=== PATIENT | male | born 1985 | race Native Hawaiian/Other Pacific Islander ===

== ENCOUNTER → 2018-02-28 07:55 | Outpatient (CLI) | payer MEDICARE, MEDICAID, SELFPAY ==
[2018-02-28 08:08] LABS: Bacteria Urine None Seen; RBC Urine None Seen (0-5/HPF); WBC Urine None Seen (0-5/HPF)
[2018-02-28 09:03] LABS: Add Manual Diff / Slide Review NO; Basophils Percent Auto 0.6 % (0-2); Eosinophils Percent Auto 2.3 % (2-4); Hematocrit 35.7 % (41-53); Hemoglobin 12.5 g/dL (13.5-17.5); Lymphocytes Percent Auto 4.3 % (25-40); Mean Corpuscular HGB Conc 35.1 % (30-36); Mean Corpuscular Hemoglobin 29.9 PG (26-34); Mean Corpuscular Volume 85.2 fL (80-100); Monocytes Percent Auto 7.6 % (3-14); Neutrophils Absolute Auto 8800 /uL (3000-5900); Neutrophils Percent Auto 85.2 % (50-75); Platelet Count 206 X10^3/uL (150-400); Red Blood Cell Count 4.19 X10^6/uL (4.5-5.9); Red Cell Distribution Width 13.4 % (11.6-14.8); White Blood Cell Count 10.3 X10^3/uL (4.5-11.0)
[2018-02-28 09:12] LABS: Alanine Aminotransferase 22 IU/L (21-72); Albumin 4.5 g/dL (3.5-5.0); Albumin Globulin Ratio 1.7 (1.0-2.8); Alkaline Phosphatase 62 U/L (38-126); Aspartate Aminotransferase 18 IU/L (17-59); BUN Creatinine Ratio 14.6 (6-22); Bilirubin Total 0.6 mg/dL (0.2-1.3); Blood Urea Nitrogen 35 mg/dL (9-20); Calcium 9.9 mg/dL (8.4-10.2); Carbon Dioxide 25 mmol/L (22-32); Chloride 106 mmol/L (98-107); Estimated Glomerular Filt Rate 31.9 mL/min (>60); Globulin 2.6 g/dL (1.7-4.1); Glucose 97 mg/dL (70-100); HEMOLYSIS < 15 (0-50); Magnesium 1.5 mg/dL (1.6-2.3); Phosphorous 3.7 mg/dL (2.5-4.5); Potassium 4.1 mmol/L (3.4-5.1); Sodium 144 mmol/L (137-145); Total Protein 7.1 g/dL (6.3-8.2)
[2018-02-28 09:33] LABS: Appearance Urine UA CLEAR; Bilirubin Urine UA NEGATIVE (NEGATIVE); Color Urine UA YELLOW; Glucose Urine UA NEGATIVE (Normal); Ketones Urine UA NEGATIVE (NEGATIVE); Leukocyte Esterase Urine UA NEGATIVE (NEGATIVE); Nitrite Urine UA Negative (Negative); Occult Blood Urine UA TRACE-LYSED (Negative); Protein Urine UA NEGATIVE (Negative); Urobilinogen Urine UA 0.2 E.U./dL (0.2)
[2018-02-28 09:41] LABS: Culture Indicated Urine Cult Not Indicated; Urine Comments Microscopic Normal
[2018-02-28 14:38] LABS: Creatinine Urine Random 100.7 mg/dL; Protein (Total) Urine Random 26 mg/dL (0-12); Protein Creatinine Ratio Urine 0.25 GRAM/24H
[2018-03-02 19:43] LABS: Tacrolimus 9.8 mcg/L (5.0-20.0)
== END ==
PROVIDERS: PCP Physician Assistant; Visit Provider Internal Medicine Nephrology
DX: Z94.0 Kidney transplant status (principal); Z48.298 Encounter for aftercare following other organ transplant; T86.40 Unspecified complication of liver transplant; E83.40 Disorders of magnesium metabolism, unspecified; T86.90 Unspecified complication of unspecified transplanted organ and tissue; I10 Essential (primary) hypertension
CPT/HCPCS: 36415; 80053; 80197; 81001; 82570; 83735; 84100; 84156; 85025

== ENCOUNTER → 2018-03-07 07:53 | Outpatient (CLI) | payer MEDICARE, MEDICAID, SELFPAY ==
[2018-03-07 08:04] LABS: Bacteria Urine None Seen; RBC Urine None Seen (0-5/HPF); WBC Urine None Seen (0-5/HPF)
[2018-03-07 08:38] LABS: Add Manual Diff / Slide Review NO; Basophils Percent Auto 1.4 % (0-2); Eosinophils Percent Auto 1.7 % (2-4); Hematocrit 37.1 % (41-53); Hemoglobin 12.7 g/dL (13.5-17.5); Lymphocytes Percent Auto 10.2 % (25-40); Mean Corpuscular HGB Conc 34.2 % (30-36); Mean Corpuscular Hemoglobin 29.7 PG (26-34); Monocytes Percent Auto 8.6 % (3-14); Neutrophils Absolute Auto 4700 /uL (3000-5900); Neutrophils Percent Auto 78.1 % (50-75); Platelet Count 195 X10^3/uL (150-400); Red Blood Cell Count 4.26 X10^6/uL (4.5-5.9); Red Cell Distribution Width 13.7 % (11.6-14.8); White Blood Cell Count 6.1 X10^3/uL (4.5-11.0)
[2018-03-07 08:48] LABS: Appearance Urine UA CLEAR; Bilirubin Urine UA NEGATIVE (NEGATIVE); Color Urine UA YELLOW; Glucose Urine UA NEGATIVE (Normal); Ketones Urine UA NEGATIVE (NEGATIVE); Leukocyte Esterase Urine UA NEGATIVE (NEGATIVE); Nitrite Urine UA Negative (Negative); Occult Blood Urine UA NEGATIVE (Negative); Protein Urine UA NEGATIVE (Negative); Specific Gravity Urine UA 1.015 (1.000-1.035); Urobilinogen Urine UA 0.2 E.U./dL (0.2); pH Urine UA 5.5 (4.5-8.0)
[2018-03-07 08:53] LABS: Culture Indicated Urine Cult Not Indicated; Urine Comments Microscopic Normal
[2018-03-07 09:04] LABS: Alanine Aminotransferase 22 IU/L (21-72); Albumin 4.8 g/dL (3.5-5.0); Albumin Globulin Ratio 1.7 (1.0-2.8); Alkaline Phosphatase 59 U/L (38-126); Aspartate Aminotransferase 17 IU/L (17-59); BUN Creatinine Ratio 21.3 (6-22); Bilirubin Total 0.6 mg/dL (0.2-1.3); Blood Urea Nitrogen 51 mg/dL (9-20); Calcium 9.4 mg/dL (8.4-10.2); Carbon Dioxide 29 mmol/L (22-32); Chloride 98 mmol/L (98-107); Estimated Glomerular Filt Rate 31.9 mL/min (>60); Globulin 2.8 g/dL (1.7-4.1); Glucose 102 mg/dL (70-100); HEMOLYSIS < 15 (0-50); Magnesium 1.4 mg/dL (1.6-2.3); Phosphorous 3.6 mg/dL (2.5-4.5); Potassium 3.7 mmol/L (3.4-5.1); Sodium 142 mmol/L (137-145); Total Protein 7.6 g/dL (6.3-8.2)
[2018-03-07 09:24] LABS: Creatinine Urine Random 59.5 mg/dL; Protein (Total) Urine Random 12 mg/dL (0-12)
[2018-03-09 11:21] LABS: Tacrolimus 8.1 mcg/L (5.0-20.0)
== END ==
PROVIDERS: Family Provider Physician Assistant; PCP Physician Assistant; Visit Provider Internal Medicine Nephrology
DX: Z94.0 Kidney transplant status (principal); Z48.298 Encounter for aftercare following other organ transplant; T86.40 Unspecified complication of liver transplant; E83.40 Disorders of magnesium metabolism, unspecified
CPT/HCPCS: 36415; 80053; 80197; 81001; 82570; 83735; 84100; 84156; 85025

== ENCOUNTER → 2018-03-14 08:02 | Outpatient (CLI) | payer MEDICARE, MEDICAID, SELFPAY ==
[2018-03-14 08:37] LABS: Add Manual Diff / Slide Review NO; Basophils Percent Auto 0.5 % (0-2); Eosinophils Percent Auto 1.7 % (2-4); Hematocrit 39.2 % (41-53); Hemoglobin 13.7 g/dL (13.5-17.5); Mean Corpuscular HGB Conc 34.9 % (30-36); Mean Corpuscular Hemoglobin 30.1 PG (26-34); Mean Corpuscular Volume 86.2 fL (80-100); Monocytes Percent Auto 8.3 % (3-14); Neutrophils Absolute Auto 5800 /uL (3000-5900); Neutrophils Percent Auto 78.5 % (50-75); Platelet Count 216 X10^3/uL (150-400); Red Blood Cell Count 4.55 X10^6/uL (4.5-5.9); Red Cell Distribution Width 14.4 % (11.6-14.8); White Blood Cell Count 7.4 X10^3/uL (4.5-11.0)
[2018-03-14 09:12] LABS: Alanine Aminotransferase 21 IU/L (21-72); Albumin 5.1 g/dL (3.5-5.0); Albumin Globulin Ratio 1.8 (1.0-2.8); Alkaline Phosphatase 70 U/L (38-126); Aspartate Aminotransferase 17 IU/L (17-59); BUN Creatinine Ratio 18.3 (6-22); Bilirubin Total 0.6 mg/dL (0.2-1.3); Blood Urea Nitrogen 44 mg/dL (9-20); Calcium 10.2 mg/dL (8.4-10.2); Carbon Dioxide 29 mmol/L (22-32); Chloride 96 mmol/L (98-107); Estimated Glomerular Filt Rate 31.9 mL/min (>60); Globulin 2.8 g/dL (1.7-4.1); Glucose 103 mg/dL (70-100); HEMOLYSIS < 15 (0-50); Magnesium 1.4 mg/dL (1.6-2.3); Phosphorous 3.5 mg/dL (2.5-4.5); Potassium 3.6 mmol/L (3.4-5.1); Sodium 141 mmol/L (137-145); Total Protein 7.9 g/dL (6.3-8.2)
[2018-03-16 13:56] LABS: Tacrolimus 9.5 mcg/L (5.0-20.0)
== END ==
PROVIDERS: Family Provider Physician Assistant; PCP Physician Assistant; Visit Provider Internal Medicine Nephrology
DX: Z94.0 Kidney transplant status (principal); Z48.298 Encounter for aftercare following other organ transplant; T86.40 Unspecified complication of liver transplant; E83.40 Disorders of magnesium metabolism, unspecified
CPT/HCPCS: 36415; 80053; 80197; 83735; 84100; 85025

== ENCOUNTER → 2018-04-07 08:23 | Outpatient (CLI) | payer MEDICARE, MEDICAID, SELFPAY ==
[2018-04-07 10:21] LABS: Appearance Urine UA CLEAR; Bilirubin Urine UA NEGATIVE (NEGATIVE); Color Urine UA YELLOW; Glucose Urine UA NEGATIVE (Normal); Ketones Urine UA NEGATIVE (NEGATIVE); Leukocyte Esterase Urine UA NEGATIVE (NEGATIVE); Nitrite Urine UA NEGATIVE (Negative); Occult Blood Urine UA 2+ (Negative); Protein Urine UA NEGATIVE (Negative); Urobilinogen Urine UA 0.2 E.U./dL (0.2)
[2018-04-07 10:23] LABS: Add Manual Diff / Slide Review NO; Basophils Percent Auto 0.2 % (0-2); Eosinophils Percent Auto 1.1 % (2-4); Hematocrit 36.9 % (41-53); Lymphocytes Percent Auto 11.4 % (25-40); Mean Corpuscular HGB Conc 35.1 % (30-36); Mean Corpuscular Hemoglobin 30.6 PG (26-34); Mean Corpuscular Volume 87.2 fL (80-100); Monocytes Percent Auto 8.4 % (3-14); Neutrophils Absolute Auto 5100 /uL (3000-5900); Neutrophils Percent Auto 78.9 % (50-75); Platelet Count 180 X10^3/uL (150-400); Red Blood Cell Count 4.23 X10^6/uL (4.5-5.9); Red Cell Distribution Width 14.7 % (11.6-14.8); White Blood Cell Count 6.4 X10^3/uL (4.5-11.0)
[2018-04-07 10:26] LABS: Alanine Aminotransferase 26 IU/L (21-72); Albumin 4.9 g/dL (3.5-5.0); Albumin Globulin Ratio 1.8 (1.0-2.8); Alkaline Phosphatase 62 U/L (38-126); Aspartate Aminotransferase 19 IU/L (17-59); BUN Creatinine Ratio 14.8 (6-22); Bilirubin Total 0.3 mg/dL (0.2-1.3); Blood Urea Nitrogen 34 mg/dL (9-20); Calcium 9.7 mg/dL (8.4-10.2); Carbon Dioxide 29 mmol/L (22-32); Chloride 100 mmol/L (98-107); Estimated Glomerular Filt Rate 33.6 mL/min (>60); Globulin 2.7 g/dL (1.7-4.1); Glucose 103 mg/dL (70-100); HEMOLYSIS < 15 (0-50); Magnesium 1.2 mg/dL (1.6-2.3); Phosphorous 3.5 mg/dL (2.5-4.5); Potassium 3.6 mmol/L (3.4-5.1); Sodium 142 mmol/L (137-145); Total Protein 7.6 g/dL (6.3-8.2)
[2018-04-07 10:50] LABS: RBC Urine 1-5/HPF (0-5/HPF); Squamous Epithelial Cell Urine 0-1 /HPF; WBC Urine 0-1/HPF (0-5/HPF)
[2018-04-07 10:51] LABS: Bacteria Urine Occasional (0-1); Culture Indicated Urine Cult Not Indicated
[2018-04-07 11:11] LABS: Collection Time Urine 24 Hours; Creatinine Urine Random 85.6 mg/dL; Patient Height Urine 70 inches; Patient Weight Urine 225 lbs; Total Volume Urine 2000 mL
[2018-04-07 11:14] LABS: Creat Clearance, Corrected 42.7 mL/MIN
[2018-04-07 11:29] LABS: Creatinine Urine Random 85.2 mg/dL; Protein (Total) Urine Random 12 mg/dL (0-12); Protein Creatinine Ratio Urine 0.14 GRAM/24H
[2018-04-07 11:40] LABS: Collection Time Urine 24 Hours; Protein (Total) Urine Random 11 mg/dL (0-12); Total Protein 24 Hour Urine 220 mg/day (42-225)
[2018-04-07 11:42] LABS: Creatinine 24 Hour Urine 1704 mg/day (1000-2000); Creatinine Urine Random 85.2 mg/dL
[2018-04-07 14:09] LABS: Total Volume Urine 2000 mL
[2018-04-10 06:18] LABS: Tacrolimus 8.6 mcg/L (5.0-20.0)
== END ==
PROVIDERS: Family Provider Physician Assistant; PCP Physician Assistant; Visit Provider Internal Medicine Nephrology
DX: Z94.0 Kidney transplant status (principal); Z48.298 Encounter for aftercare following other organ transplant; T86.90 Unspecified complication of unspecified transplanted organ and tissue
CPT/HCPCS: 36415; 80053; 80197; 81001; 82570; 82575; 83735; 84100; 84156; 85025

== ENCOUNTER → 2018-04-18 08:13 | Outpatient (CLI) | payer MEDICARE, MEDICAID, SELFPAY ==
[2018-04-18 09:06] LABS: Alanine Aminotransferase 32 IU/L (21-72); Albumin Globulin Ratio 1.7 (1.0-2.8); Alkaline Phosphatase 56 U/L (38-126); Aspartate Aminotransferase 25 IU/L (17-59); Bilirubin Total 0.4 mg/dL (0.2-1.3); Blood Urea Nitrogen 39 mg/dL (9-20); Calcium 9.6 mg/dL (8.4-10.2); Carbon Dioxide 29 mmol/L (22-32); Chloride 99 mmol/L (98-107); Estimated Glomerular Filt Rate 33.6 mL/min (>60); Globulin 2.9 g/dL (1.7-4.1); Glucose 102 mg/dL (70-100); HEMOLYSIS < 15 (0-50); Magnesium 1.4 mg/dL (1.6-2.3); Phosphorous 3.4 mg/dL (2.5-4.5); Potassium 3.7 mmol/L (3.4-5.1); Sodium 143 mmol/L (137-145); Total Protein 7.9 g/dL (6.3-8.2)
[2018-04-18 09:10] LABS: Add Manual Diff / Slide Review NO; Basophils Percent Auto 0.4 % (0-2); Hematocrit 37.4 % (41-53); Hemoglobin 13.2 g/dL (13.5-17.5); Lymphocytes Percent Auto 9.5 % (25-40); Mean Corpuscular HGB Conc 35.3 % (30-36); Mean Corpuscular Hemoglobin 30.9 PG (26-34); Mean Corpuscular Volume 87.5 fL (80-100); Monocytes Percent Auto 9.2 % (3-14); Neutrophils Absolute Auto 5100 /uL (3000-5900); Neutrophils Percent Auto 79.9 % (50-75); Platelet Count 183 X10^3/uL (150-400); Red Blood Cell Count 4.27 X10^6/uL (4.5-5.9); Red Cell Distribution Width 15.4 % (11.6-14.8); White Blood Cell Count 6.4 X10^3/uL (4.5-11.0)
[2018-04-18 09:41] LABS: Appearance Urine UA CLEAR; Bilirubin Urine UA NEGATIVE (NEGATIVE); Color Urine UA YELLOW; Glucose Urine UA NEGATIVE (Normal); Ketones Urine UA NEGATIVE (NEGATIVE); Leukocyte Esterase Urine UA NEGATIVE (NEGATIVE); Nitrite Urine UA NEGATIVE (Negative); Occult Blood Urine UA NEGATIVE (Negative); Protein Urine UA NEGATIVE (Negative); Urobilinogen Urine UA 0.2 E.U./dL (0.2)
[2018-04-18 10:11] LABS: RBC Urine 0-1/HPF (0-5/HPF)
[2018-04-18 10:12] LABS: Bacteria Urine Occasional (0-1); Culture Indicated Urine Cult Not Indicated; Squamous Epithelial Cell Urine 0-1 /HPF; WBC Urine 0-1/HPF (0-5/HPF)
[2018-04-18 10:18] LABS: Creatinine Urine Random 81.8 mg/dL; Protein (Total) Urine Random 11 mg/dL (0-12); Protein Creatinine Ratio Urine 0.13 GRAM/24H
[2018-04-20 20:12] LABS: Tacrolimus 7.9 mcg/L (5.0-20.0)
== END ==
PROVIDERS: Family Provider Physician Assistant; PCP Physician Assistant; Visit Provider Internal Medicine Nephrology
DX: Z94.0 Kidney transplant status (principal); Z48.298 Encounter for aftercare following other organ transplant; T86.40 Unspecified complication of liver transplant; E83.40 Disorders of magnesium metabolism, unspecified
CPT/HCPCS: 36415; 80053; 80197; 81001; 82570; 83735; 84100; 84156; 85025

== ENCOUNTER → 2018-04-25 08:12 | Outpatient (CLI) | payer MEDICARE, MEDICAID, SELFPAY ==
[2018-04-25 08:21] LABS: Bacteria Urine None Seen; RBC Urine None Seen (0-5/HPF); WBC Urine None Seen (0-5/HPF)
[2018-04-25 08:49] LABS: Appearance Urine UA CLEAR; Bilirubin Urine UA NEGATIVE (NEGATIVE); Color Urine UA YELLOW; Glucose Urine UA NEGATIVE (Normal); Ketones Urine UA NEGATIVE (NEGATIVE); Leukocyte Esterase Urine UA NEGATIVE (NEGATIVE); Nitrite Urine UA NEGATIVE (Negative); Occult Blood Urine UA NEGATIVE (Negative); Protein Urine UA NEGATIVE (Negative); Specific Gravity Urine UA 1.015 (1.000-1.035); Urobilinogen Urine UA 0.2 E.U./dL (0.2); pH Urine UA 5.5 (4.5-8.0)
[2018-04-25 08:55] LABS: Add Manual Diff / Slide Review NO; Basophils Percent Auto 0.4 % (0-2); Eosinophils Percent Auto 1.1 % (2-4); Hematocrit 39.5 % (41-53); Hemoglobin 13.8 g/dL (13.5-17.5); Lymphocytes Percent Auto 9.8 % (25-40); Mean Corpuscular HGB Conc 34.9 % (30-36); Mean Corpuscular Hemoglobin 30.5 PG (26-34); Mean Corpuscular Volume 87.5 fL (80-100); Monocytes Percent Auto 7.8 % (3-14); Neutrophils Absolute Auto 5600 /uL (3000-5900); Neutrophils Percent Auto 80.9 % (50-75); Platelet Count 214 X10^3/uL (150-400); Red Blood Cell Count 4.52 X10^6/uL (4.5-5.9); Red Cell Distribution Width 15.5 % (11.6-14.8); White Blood Cell Count 6.9 X10^3/uL (4.5-11.0)
[2018-04-25 09:03] LABS: Culture Indicated Urine Cult Not Indicated; Urine Comments Microscopic Normal
[2018-04-25 09:22] LABS: Creatinine Urine Random 100.9 mg/dL; Protein (Total) Urine Random 15 mg/dL (0-12); Protein Creatinine Ratio Urine 0.14 GRAM/24H
[2018-04-25 09:26] LABS: Alanine Aminotransferase 33 IU/L (21-72); Albumin 5.2 g/dL (3.5-5.0); Alkaline Phosphatase 62 U/L (38-126); Aspartate Aminotransferase 22 IU/L (17-59); BUN Creatinine Ratio 13.8 (6-22); Bilirubin Total 0.5 mg/dL (0.2-1.3); Blood Urea Nitrogen 29 mg/dL (9-20); Calcium 9.9 mg/dL (8.4-10.2); Carbon Dioxide 28 mmol/L (22-32); Chloride 99 mmol/L (98-107); Estimated Glomerular Filt Rate 37.3 mL/min (>60); Globulin 2.6 g/dL (1.7-4.1); Glucose 105 mg/dL (70-100); HEMOLYSIS < 15 (0-50); Magnesium 1.5 mg/dL (1.6-2.3); Phosphorous 3.1 mg/dL (2.5-4.5); Potassium 3.7 mmol/L (3.4-5.1); Sodium 144 mmol/L (137-145); Total Protein 7.8 g/dL (6.3-8.2)
[2018-04-27 19:39] LABS: Tacrolimus 10.6 mcg/L (5.0-20.0)
== END ==
PROVIDERS: Family Provider Physician Assistant; PCP Physician Assistant; Visit Provider Internal Medicine Nephrology
DX: Z94.0 Kidney transplant status (principal); Z48.298 Encounter for aftercare following other organ transplant; T86.40 Unspecified complication of liver transplant; E83.40 Disorders of magnesium metabolism, unspecified; I10 Essential (primary) hypertension
CPT/HCPCS: 80053; 80197; 81001; 82570; 83735; 84100; 84156; 85025

== ENCOUNTER → 2018-05-02 08:13 | Outpatient (CLI) | payer MEDICARE, MEDICAID, SELFPAY ==
[2018-05-02 08:31] LABS: Bacteria Urine None Seen; RBC Urine None Seen (0-5/HPF); WBC Urine None Seen (0-5/HPF)
[2018-05-02 08:53] LABS: Add Manual Diff / Slide Review NO; Basophils Percent Auto 0.8 % (0-2); Eosinophils Percent Auto 0.6 % (2-4); Hematocrit 39.2 % (41-53); Hemoglobin 13.8 g/dL (13.5-17.5); Lymphocytes Percent Auto 9.5 % (25-40); Mean Corpuscular HGB Conc 35.2 % (30-36); Mean Corpuscular Hemoglobin 31.2 PG (26-34); Mean Corpuscular Volume 88.7 fL (80-100); Monocytes Percent Auto 12.3 % (3-14); Neutrophils Absolute Auto 4700 /uL (3000-5900); Neutrophils Percent Auto 76.8 % (50-75); Platelet Count 185 X10^3/uL (150-400); Red Blood Cell Count 4.42 X10^6/uL (4.5-5.9); Red Cell Distribution Width 15.5 % (11.6-14.8); White Blood Cell Count 6.1 X10^3/uL (4.5-11.0)
[2018-05-02 09:01] LABS: Appearance Urine UA CLEAR; Bilirubin Urine UA NEGATIVE (NEGATIVE); Color Urine UA YELLOW; Glucose Urine UA NEGATIVE (Normal); Ketones Urine UA NEGATIVE (NEGATIVE); Leukocyte Esterase Urine UA NEGATIVE (NEGATIVE); Nitrite Urine UA NEGATIVE (Negative); Occult Blood Urine UA NEGATIVE (Negative); Protein Urine UA NEGATIVE (Negative); Urobilinogen Urine UA 0.2 E.U./dL (0.2)
[2018-05-02 09:29] LABS: Culture Indicated Urine Cult Not Indicated; Urine Comments Microscopic Normal
[2018-05-02 09:34] LABS: Alanine Aminotransferase 43 IU/L (21-72); Albumin 4.9 g/dL (3.5-5.0); Albumin Globulin Ratio 1.6 (1.0-2.8); Alkaline Phosphatase 67 U/L (38-126); Aspartate Aminotransferase 36 IU/L (17-59); BUN Creatinine Ratio 14.8 (6-22); Bilirubin Total 0.6 mg/dL (0.2-1.3); Blood Urea Nitrogen 31 mg/dL (9-20); Calcium 9.6 mg/dL (8.4-10.2); Carbon Dioxide 28 mmol/L (22-32); Chloride 99 mmol/L (98-107); Estimated Glomerular Filt Rate 37.3 mL/min (>60); Globulin 3.1 g/dL (1.7-4.1); Glucose 112 mg/dL (70-100); HEMOLYSIS < 15 (0-50); Magnesium 1.6 mg/dL (1.6-2.3); Phosphorous 2.7 mg/dL (2.5-4.5); Potassium 3.3 mmol/L (3.4-5.1); Sodium 142 mmol/L (137-145)
[2018-05-02 09:48] LABS: Creatinine Urine Random 151.3 mg/dL; Protein (Total) Urine Random 17 mg/dL (0-12); Protein Creatinine Ratio Urine 0.11 GRAM/24H
[2018-05-03 16:15] LABS: Tacrolimus 6.9 mcg/L (5.0-20.0)
== END ==
PROVIDERS: Family Provider Physician Assistant; PCP Physician Assistant; Visit Provider Internal Medicine Nephrology
DX: Z94.0 Kidney transplant status (principal); Z48.298 Encounter for aftercare following other organ transplant; T86.40 Unspecified complication of liver transplant; E83.40 Disorders of magnesium metabolism, unspecified
CPT/HCPCS: 36415; 80053; 80197; 81001; 82570; 83735; 84100; 84156; 85025

== ENCOUNTER → 2018-05-09 08:28 | Outpatient (CLI) | payer MEDICARE, MEDICAID, SELFPAY ==
[2018-05-09 08:49] LABS: Bacteria Urine None Seen; RBC Urine None Seen (0-5/HPF); WBC Urine None Seen (0-5/HPF)
[2018-05-09 09:37] LABS: Add Manual Diff / Slide Review NO; Basophils Percent Auto 0.5 % (0-2); Eosinophils Percent Auto 1.2 % (2-4); Hematocrit 38.7 % (41-53); Hemoglobin 13.7 g/dL (13.5-17.5); Lymphocytes Percent Auto 11.6 % (25-40); Mean Corpuscular HGB Conc 35.4 % (30-36); Mean Corpuscular Hemoglobin 31.4 PG (26-34); Mean Corpuscular Volume 88.7 fL (80-100); Monocytes Percent Auto 10.4 % (3-14); Neutrophils Absolute Auto 4000 /uL (3000-5900); Neutrophils Percent Auto 76.3 % (50-75); Platelet Count 194 X10^3/uL (150-400); Red Blood Cell Count 4.36 X10^6/uL (4.5-5.9); Red Cell Distribution Width 15.3 % (11.6-14.8); White Blood Cell Count 5.3 X10^3/uL (4.5-11.0)
[2018-05-09 10:02] LABS: Alanine Aminotransferase 31 IU/L (21-72); Albumin Globulin Ratio 1.7 (1.0-2.8); Alkaline Phosphatase 66 U/L (38-126); Appearance Urine UA CLEAR; Aspartate Aminotransferase 29 IU/L (17-59); BUN Creatinine Ratio 18.3 (6-22); Bilirubin Total 0.5 mg/dL (0.2-1.3); Bilirubin Urine UA NEGATIVE (NEGATIVE); Blood Urea Nitrogen 33 mg/dL (9-20); Calcium 9.7 mg/dL (8.4-10.2); Carbon Dioxide 28 mmol/L (22-32); Chloride 99 mmol/L (98-107); Color Urine UA YELLOW; Estimated Glomerular Filt Rate 44.5 mL/min (>60); Glucose 103 mg/dL (70-100); Glucose Urine UA NEGATIVE (Normal); HEMOLYSIS < 15 (0-50); Ketones Urine UA NEGATIVE (NEGATIVE); Leukocyte Esterase Urine UA NEGATIVE (NEGATIVE); Magnesium 1.5 mg/dL (1.6-2.3); Nitrite Urine UA NEGATIVE (Negative); Occult Blood Urine UA NEGATIVE (Negative); Potassium 3.7 mmol/L (3.4-5.1); Protein Urine UA NEGATIVE (Negative); Sodium 143 mmol/L (137-145); Urobilinogen Urine UA 0.2 E.U./dL (0.2)
[2018-05-09 10:06] LABS: Creatinine Urine Random 107.8 mg/dL; Protein (Total) Urine Random 8 mg/dL (0-12); Protein Creatinine Ratio Urine 0.07 GRAM/24H
[2018-05-09 10:14] LABS: Culture Indicated Urine Cult Not Indicated; Urine Comments Microscopic Normal
[2018-05-11 07:50] LABS: Tacrolimus 7.7 mcg/L (5.0-20.0)
== END ==
PROVIDERS: Family Provider Physician Assistant; PCP Physician Assistant; Visit Provider Internal Medicine Nephrology
DX: Z94.0 Kidney transplant status (principal); Z48.298 Encounter for aftercare following other organ transplant; T86.40 Unspecified complication of liver transplant; E83.40 Disorders of magnesium metabolism, unspecified
CPT/HCPCS: 36415; 80053; 80197; 81001; 82570; 83735; 84100; 84156; 85025

== ENCOUNTER → 2018-05-30 07:48 | Outpatient (CLI) | payer MEDICARE, MEDICAID, SELFPAY ==
[2018-05-30 08:51] LABS: Alanine Aminotransferase 39 IU/L (21-72); Albumin 5.1 g/dL (3.5-5.0); Albumin Globulin Ratio 1.7 (1.0-2.8); Alkaline Phosphatase 61 U/L (38-126); Aspartate Aminotransferase 28 IU/L (17-59); BUN Creatinine Ratio 16.7 (6-22); Bilirubin Total 0.7 mg/dL (0.2-1.3); Blood Urea Nitrogen 30 mg/dL (9-20); Calcium 9.8 mg/dL (8.4-10.2); Carbon Dioxide 28 mmol/L (22-32); Chloride 97 mmol/L (98-107); Estimated Glomerular Filt Rate 44.5 mL/min (>60); Glucose 110 mg/dL (70-100); HEMOLYSIS < 15 (0-50); Magnesium 1.7 mg/dL (1.6-2.3); Phosphorous 2.6 mg/dL (2.5-4.5); Potassium 3.4 mmol/L (3.4-5.1); Sodium 143 mmol/L (137-145); Total Protein 8.1 g/dL (6.3-8.2)
[2018-05-30 09:13] LABS: Add Manual Diff / Slide Review NO; Basophils Percent Auto 0.4 % (0-2); Eosinophils Percent Auto 1.6 % (2-4); Hematocrit 40.4 % (41-53); Hemoglobin 14.2 g/dL (13.5-17.5); Lymphocytes Percent Auto 8.9 % (25-40); Mean Corpuscular HGB Conc 35.2 % (30-36); Mean Corpuscular Hemoglobin 31.2 PG (26-34); Mean Corpuscular Volume 88.8 fL (80-100); Monocytes Percent Auto 8.7 % (3-14); Neutrophils Absolute Auto 5200 /uL (1500-7000); Neutrophils Percent Auto 80.4 % (50-75); Platelet Count 195 X10^3/uL (150-400); Red Blood Cell Count 4.55 X10^6/uL (4.5-5.9); Red Cell Distribution Width 13.8 % (11.6-14.8); White Blood Cell Count 6.5 X10^3/uL (4.5-11.0)
[2018-05-30 09:14] LABS: Appearance Urine UA CLEAR; Bilirubin Urine UA NEGATIVE (NEGATIVE); Color Urine UA YELLOW; Glucose Urine UA NEGATIVE (Normal); Ketones Urine UA NEGATIVE (NEGATIVE); Leukocyte Esterase Urine UA NEGATIVE (NEGATIVE); Nitrite Urine UA NEGATIVE (Negative); Occult Blood Urine UA TRACE-INTACT (Negative); Protein Urine UA NEGATIVE (Negative); Urobilinogen Urine UA 0.2 E.U./dL (0.2)
[2018-05-30 09:38] LABS: Bacteria Urine Occasional (0-1); Culture Indicated Urine Cult Not Indicated; RBC Urine 0-1/HPF (0-5/HPF); WBC Urine 0-1/HPF (0-5/HPF)
[2018-05-30 10:02] LABS: Creatinine Urine Random 102.4 mg/dL; Protein (Total) Urine Random 17 mg/dL (0-12); Protein Creatinine Ratio Urine 0.16 GRAM/24H
[2018-05-30 10:15] LABS: Hepatitis B Surface Antigen NEGATIVE s/c (NEGATIVE)
[2018-05-30 10:41] LABS: HIV 1 and 2 Antibody NEGATIVE (NEGATIVE); Hep C Virus Ab w/Reflex Quant NEGATIVE s/c (NEGATIVE)
[2018-05-31 17:58] LABS: Hepatitis B Core Antibody Nonreactive (Nonreactive)
[2018-05-31 18:05] LABS: Hepatitis B Surf Ab Qualitativ Reactive (Nonreactive)
== END ==
PROVIDERS: Family Provider Physician Assistant; PCP Physician Assistant; Visit Provider Internal Medicine Nephrology
DX: Z94.0 Kidney transplant status (principal); Z48.298 Encounter for aftercare following other organ transplant; T86.40 Unspecified complication of liver transplant; E83.40 Disorders of magnesium metabolism, unspecified; B34.9 Viral infection, unspecified
CPT/HCPCS: 36415; 80053; 80197; 81001; 82570; 83735; 84100; 84156; 85025; 86703; 86704; 86706; 86803; 87340; 87517; 87522

== ENCOUNTER → 2018-06-08 07:52 | Outpatient (CLI) | payer MEDICARE, MEDICAID, SELFPAY ==
[2018-06-08 08:43] LABS: Add Manual Diff / Slide Review NO; Basophils Percent Auto 0.4 % (0-2); Eosinophils Percent Auto 0.9 % (2-4); Lymphocytes Percent Auto 8.5 % (25-40); Mean Corpuscular HGB Conc 34.9 % (30-36); Mean Corpuscular Hemoglobin 30.7 PG (26-34); Mean Corpuscular Volume 87.9 fL (80-100); Monocytes Percent Auto 8.4 % (3-14); Neutrophils Absolute Auto 4800 /uL (1500-7000); Neutrophils Percent Auto 81.8 % (50-75); Platelet Count 207 X10^3/uL (150-400); Red Cell Distribution Width 13.3 % (11.6-14.8); White Blood Cell Count 5.9 X10^3/uL (4.5-11.0)
[2018-06-08 08:52] LABS: Alanine Aminotransferase 45 IU/L (21-72); Albumin Globulin Ratio 1.6 (1.0-2.8); Alkaline Phosphatase 64 U/L (38-126); Aspartate Aminotransferase 33 IU/L (17-59); BUN Creatinine Ratio 14.4 (6-22); Bilirubin Total 0.7 mg/dL (0.2-1.3); Blood Urea Nitrogen 26 mg/dL (9-20); Calcium 9.9 mg/dL (8.4-10.2); Carbon Dioxide 29 mmol/L (22-32); Chloride 96 mmol/L (98-107); Estimated Glomerular Filt Rate 44.5 mL/min (>60); Globulin 3.1 g/dL (1.7-4.1); Glucose 112 mg/dL (70-100); HEMOLYSIS < 15 (0-50); Magnesium 1.7 mg/dL (1.6-2.3); Phosphorous 2.5 mg/dL (2.5-4.5); Potassium 3.3 mmol/L (3.4-5.1); Sodium 139 mmol/L (137-145); Total Protein 8.1 g/dL (6.3-8.2)
[2018-06-08 08:59] LABS: Appearance Urine UA CLEAR; Bilirubin Urine UA NEGATIVE (NEGATIVE); Color Urine UA YELLOW; Glucose Urine UA NEGATIVE (Normal); Ketones Urine UA NEGATIVE (NEGATIVE); Leukocyte Esterase Urine UA NEGATIVE (NEGATIVE); Nitrite Urine UA NEGATIVE (Negative); Occult Blood Urine UA 1+ (Negative); Protein Urine UA 2+ (Negative); Urobilinogen Urine UA 0.2 E.U./dL (0.2); pH Urine UA 5.5 (4.5-8.0)
[2018-06-08 09:15] LABS: Bacteria Urine Few (2-10); Culture Indicated Urine Cult Not Indicated; RBC Urine 0-1/HPF (0-5/HPF); WBC Urine 0-1/HPF (0-5/HPF)
[2018-06-08 09:40] LABS: Protein (Total) Urine Random 100 mg/dL (0-12); Protein Creatinine Ratio Urine 0.78 GRAM/24H
[2018-06-10 15:51] LABS: CMV DNA, Quant PCR LOG 10 <2.30 Log IU/mL; CMV DNA, Quant Real Time PCR <200 IU/mL; Source BL
[2018-06-10 19:11] LABS: Tacrolimus 4.3 mcg/L (5.0-20.0)
== END ==
PROVIDERS: Family Provider Physician Assistant; PCP Physician Assistant; Visit Provider Internal Medicine
DX: Z94.0 Kidney transplant status (principal); Z48.298 Encounter for aftercare following other organ transplant; T86.90 Unspecified complication of unspecified transplanted organ and tissue; B34.9 Viral infection, unspecified; E83.40 Disorders of magnesium metabolism, unspecified
CPT/HCPCS: 36415; 80053; 80180; 80197; 81001; 82570; 83735; 84100; 84156; 85025; 87497; 87799

== ENCOUNTER → 2018-06-21 09:28 | Outpatient (CLI) | payer MEDICARE, MEDICAID, SELFPAY ==
[2018-06-21 10:10] LABS: Add Manual Diff / Slide Review NO; Basophils Percent Auto 0.3 % (0-2); Eosinophils Percent Auto 1.7 % (2-4); Hematocrit 42.7 % (41-53); Hemoglobin 14.6 g/dL (13.5-17.5); Lymphocytes Percent Auto 7.4 % (25-40); Mean Corpuscular HGB Conc 34.2 % (30-36); Mean Corpuscular Hemoglobin 30.3 PG (26-34); Mean Corpuscular Volume 88.6 fL (80-100); Monocytes Percent Auto 8.3 % (3-14); Neutrophils Absolute Auto 4800 /uL (1500-7000); Neutrophils Percent Auto 82.3 % (50-75); Platelet Count 174 X10^3/uL (150-400); Red Blood Cell Count 4.81 X10^6/uL (4.5-5.9); Red Cell Distribution Width 12.8 % (11.6-14.8); White Blood Cell Count 5.8 X10^3/uL (4.5-11.0)
[2018-06-21 10:35] LABS: Appearance Urine UA CLEAR; Bilirubin Urine UA NEGATIVE (NEGATIVE); Color Urine UA YELLOW; Glucose Urine UA NEGATIVE (Negative); Ketones Urine UA NEGATIVE (NEGATIVE); Leukocyte Esterase Urine UA NEGATIVE (NEGATIVE); Nitrite Urine UA NEGATIVE (Negative); Occult Blood Urine UA 1+ (Negative); Protein Urine UA TRACE (Negative); Specific Gravity Urine UA 1.025 (1.000-1.035); Urobilinogen Urine UA 0.2 E.U./dL (0.2); pH Urine UA 5.5 (4.5-8.0)
[2018-06-21 10:36] LABS: Creatinine Urine Random 71.3 mg/dL; Protein (Total) Urine Random 38 mg/dL (0-12); Protein Creatinine Ratio Urine 0.53 GRAM/24H
[2018-06-21 10:38] LABS: Alanine Aminotransferase 36 IU/L (21-72); Albumin 4.9 g/dL (3.5-5.0); Albumin Globulin Ratio 1.6 (1.0-2.8); Alkaline Phosphatase 64 U/L (38-126); Aspartate Aminotransferase 22 IU/L (17-59); BUN Creatinine Ratio 16.3 (6-22); Bilirubin Total 0.5 mg/dL (0.2-1.3); Blood Urea Nitrogen 26 mg/dL (9-20); Calcium 9.9 mg/dL (8.4-10.2); Carbon Dioxide 26 mmol/L (22-32); Chloride 103 mmol/L (98-107); Glucose 112 mg/dL (70-100); HEMOLYSIS < 15 (0-50); Magnesium 1.6 mg/dL (1.6-2.3); Phosphorous 2.9 mg/dL (2.5-4.5); Potassium 4.1 mmol/L (3.4-5.1); Sodium 142 mmol/L (137-145); Total Protein 7.9 g/dL (6.3-8.2)
[2018-06-21 11:07] LABS: Bacteria Urine Few (2-10); Culture Indicated Urine Cult Not Indicated; RBC Urine 0-1/HPF (0-5/HPF); WBC Urine 0-1/HPF (0-5/HPF)
[2018-06-23 13:05] LABS: Parathyroid Hormone Int 65 pg/mL (14-64)
[2018-06-23 17:35] LABS: Tacrolimus 6.1 mcg/L (5.0-20.0)
== END ==
PROVIDERS: Family Provider Physician Assistant; PCP Physician Assistant; Visit Provider Student in an Organized Health Care Education/Training Program
DX: D70.9 Neutropenia, unspecified (principal); D63.1 Anemia in chronic kidney disease; N05.9 Unspecified nephritic syndrome with unspecified morphologic changes; T86.10 Unspecified complication of kidney transplant; E83.40 Disorders of magnesium metabolism, unspecified; E83.30 Disorder of phosphorus metabolism, unspecified; N25.81 Secondary hyperparathyroidism of renal origin; N30.00 Acute cystitis without hematuria
CPT/HCPCS: 36415; 80053; 80197; 81001; 82570; 83735; 83970; 84100; 84156; 85025

== ENCOUNTER → 2018-07-04 07:46 | Outpatient (CLI) | payer MEDICARE, MEDICAID, SELFPAY ==
[2018-07-04 08:07] LABS: Bacteria Urine None Seen; WBC Urine None Seen (0-5/HPF)
[2018-07-04 08:47] LABS: Add Manual Diff / Slide Review NO; Basophils Absolute Auto 0 /uL (0-100); Basophils Percent Auto 0.2 % (0-2); Eosinophils Absolute Auto 100 /uL (0-450); Eosinophils Percent Auto 2.3 % (2-4); Hematocrit 44.2 % (41-53); Hemoglobin 14.9 g/dL (13.5-17.5); Lymphocytes Absolute Auto 400 /uL (1100-4500); Lymphocytes Percent Auto 7.9 % (25-40); Mean Corpuscular HGB Conc 33.6 % (30-36); Mean Corpuscular Hemoglobin 29.6 PG (26-34); Monocytes Absolute Auto 500 /uL (0-900); Monocytes Percent Auto 8.1 % (3-14); Neutrophils Absolute Auto 4600 /uL (1500-7000); Neutrophils Percent Auto 81.5 % (50-75); Platelet Count 198 X10^3/uL (150-400); Red Blood Cell Count 5.02 X10^6/uL (4.5-5.9); Red Cell Distribution Width 12.7 % (11.6-14.8); White Blood Cell Count 5.7 X10^3/uL (4.5-11.0)
[2018-07-04 08:58] LABS: Appearance Urine UA CLEAR; Bilirubin Urine UA NEGATIVE (NEGATIVE); Color Urine UA YELLOW; Glucose Urine UA NEGATIVE (Negative); Ketones Urine UA NEGATIVE (NEGATIVE); Leukocyte Esterase Urine UA NEGATIVE (NEGATIVE); Nitrite Urine UA NEGATIVE (Negative); Occult Blood Urine UA 1+ (Negative); Protein Urine UA NEGATIVE (Negative); Specific Gravity Urine UA 1.025 (1.000-1.035); Urobilinogen Urine UA 0.2 E.U./dL (0.2); pH Urine UA 5.5 (4.5-8.0)
[2018-07-04 09:04] LABS: Creatinine Urine Random 94.7 mg/dL; Protein (Total) Urine Random 28 mg/dL (0-12); Protein Creatinine Ratio Urine 0.29 GRAM/24H
[2018-07-04 09:05] LABS: Culture Indicated Urine Cult Not Indicated; RBC Urine 1-5/HPF (0-5/HPF)
[2018-07-04 09:13] LABS: Alanine Aminotransferase 40 IU/L (21-72); Albumin 4.9 g/dL (3.5-5.0); Alkaline Phosphatase 63 U/L (38-126); Aspartate Aminotransferase 23 IU/L (17-59); BUN Creatinine Ratio 14.7 (6-22); Bilirubin Total 0.5 mg/dL (0.2-1.3); Blood Urea Nitrogen 22 mg/dL (9-20); Calcium 9.9 mg/dL (8.4-10.2); Carbon Dioxide 25 mmol/L (22-32); Chloride 103 mmol/L (98-107); Globulin 2.4 g/dL (1.7-4.1); Glucose 97 mg/dL (70-100); HEMOLYSIS < 15 (0-50); Magnesium 1.6 mg/dL (1.6-2.3); Phosphorous 3.3 mg/dL (2.5-4.5); Potassium 4.4 mmol/L (3.4-5.1); Sodium 140 mmol/L (137-145); Total Protein 7.3 g/dL (6.3-8.2)
[2018-07-06 14:00] LABS: Parathyroid Hormone Int 54 pg/mL (14-64)
[2018-07-06 17:30] LABS: Tacrolimus 5.3 mcg/L (5.0-20.0)
== END ==
PROVIDERS: Family Provider Physician Assistant; PCP Physician Assistant; Visit Provider Student in an Organized Health Care Education/Training Program
DX: T86.10 Unspecified complication of kidney transplant (principal)
CPT/HCPCS: 36415; 80053; 80197; 81001; 82570; 83735; 83970; 84100; 84156; 85025

== ENCOUNTER → 2018-07-14 07:47 | Outpatient (CLI) | payer MEDICARE, MEDICAID, SELFPAY ==
[2018-07-15 16:44] LABS: Tacrolimus 5.9 mcg/L (5.0-20.0)
== END ==
PROVIDERS: Visit Provider Student in an Organized Health Care Education/Training Program
DX: T86.10 Unspecified complication of kidney transplant (principal)
CPT/HCPCS: 36415; 80197

== ENCOUNTER → 2018-07-25 08:19 | Outpatient (CLI) | payer MEDICARE, MEDICAID, SELFPAY ==
[2018-07-25 09:25] LABS: Add Manual Diff / Slide Review NO; Basophils Absolute Auto 100 /uL (0-100); Basophils Percent Auto 1.7 % (0-2); Eosinophils Absolute Auto 100 /uL (0-450); Eosinophils Percent Auto 1.7 % (2-4); Hematocrit 42.5 % (41-53); Hemoglobin 15.2 g/dL (13.5-17.5); Lymphocytes Absolute Auto 400 /uL (1100-4500); Lymphocytes Percent Auto 7.5 % (25-40); Mean Corpuscular HGB Conc 35.6 % (30-36); Mean Corpuscular Hemoglobin 29.3 PG (26-34); Mean Corpuscular Volume 82.1 fL (80-100); Monocytes Absolute Auto 400 /uL (0-900); Monocytes Percent Auto 7.7 % (3-14); Neutrophils Absolute Auto 4600 /uL (1500-7000); Neutrophils Percent Auto 81.4 % (50-75); Platelet Count 189 X10^3/uL (150-400); Red Blood Cell Count 5.18 X10^6/uL (4.5-5.9); Red Cell Distribution Width 12.5 % (11.6-14.8); White Blood Cell Count 5.6 X10^3/uL (4.5-11.0)
[2018-07-25 09:54] LABS: Alanine Aminotransferase 41 IU/L (21-72); Albumin 5.1 g/dL (3.5-5.0); Albumin Globulin Ratio 1.7 (1.0-2.8); Alkaline Phosphatase 71 U/L (38-126); Aspartate Aminotransferase 23 IU/L (17-59); Bilirubin Total 0.5 mg/dL (0.2-1.3); Blood Urea Nitrogen 24 mg/dL (9-20); Calcium 9.7 mg/dL (8.4-10.2); Carbon Dioxide 26 mmol/L (22-32); Chloride 99 mmol/L (98-107); Glucose 104 mg/dL (70-100); HEMOLYSIS 20 (0-50); Magnesium 1.4 mg/dL (1.6-2.3); Phosphorous 2.8 mg/dL (2.5-4.5); Potassium 4.3 mmol/L (3.4-5.1); Sodium 138 mmol/L (137-145); Total Protein 8.1 g/dL (6.3-8.2)
[2018-07-25 10:05] LABS: Appearance Urine UA CLEAR; Bilirubin Urine UA NEGATIVE (NEGATIVE); Color Urine UA YELLOW; Glucose Urine UA NEGATIVE (Negative); Ketones Urine UA NEGATIVE (NEGATIVE); Leukocyte Esterase Urine UA NEGATIVE (NEGATIVE); Nitrite Urine UA NEGATIVE (Negative); Occult Blood Urine UA 1+ (Negative); Protein Urine UA NEGATIVE (Negative); Specific Gravity Urine UA 1.025 (1.000-1.035); Urobilinogen Urine UA 0.2 E.U./dL (0.2)
[2018-07-25 10:59] LABS: Bacteria Urine Occasional (0-1); RBC Urine 0-1/HPF (0-5/HPF); WBC Urine 0-1/HPF (0-5/HPF)
[2018-07-25 11:00] LABS: Culture Indicated Urine Cult Not Indicated
[2018-07-25 11:15] LABS: Creatinine Urine Random 145.9 mg/dL; Protein (Total) Urine Random 28 mg/dL (0-12); Protein Creatinine Ratio Urine 0.19 GRAM/24H
[2018-07-27 19:53] LABS: Tacrolimus 7.5 mcg/L (5.0-20.0)
[2018-07-28 15:36] LABS: Parathyroid Hormone Int 70 pg/mL (14-64)
== END ==
PROVIDERS: Visit Provider Student in an Organized Health Care Education/Training Program
DX: T86.10 Unspecified complication of kidney transplant (principal); E83.40 Disorders of magnesium metabolism, unspecified
CPT/HCPCS: 36415; 80053; 80197; 81001; 82570; 83735; 83970; 84100; 84156; 85025

== ENCOUNTER → 2018-08-09 08:16 | Outpatient (CLI) | payer MEDICARE, MEDICAID, SELFPAY ==
[2018-08-09 08:26] LABS: Bacteria Urine None Seen; WBC Urine None Seen (0-5/HPF)
[2018-08-09 09:13] LABS: Add Manual Diff / Slide Review NO; Basophils Absolute Auto 0 /uL (0-100); Basophils Percent Auto 0.3 % (0-2); Eosinophils Absolute Auto 100 /uL (0-450); Eosinophils Percent Auto 1.5 % (2-4); Hematocrit 44.7 % (41-53); Hemoglobin 15.1 g/dL (13.5-17.5); Lymphocytes Absolute Auto 500 /uL (1100-4500); Lymphocytes Percent Auto 8.3 % (25-40); Mean Corpuscular HGB Conc 33.7 % (30-36); Mean Corpuscular Hemoglobin 28.6 PG (26-34); Mean Corpuscular Volume 84.8 fL (80-100); Monocytes Absolute Auto 500 /uL (0-900); Monocytes Percent Auto 8.8 % (3-14); Neutrophils Absolute Auto 4400 /uL (1500-7000); Neutrophils Percent Auto 81.1 % (50-75); Platelet Count 184 X10^3/uL (150-400); Red Blood Cell Count 5.27 X10^6/uL (4.5-5.9); Red Cell Distribution Width 12.7 % (11.6-14.8); White Blood Cell Count 5.5 X10^3/uL (4.5-11.0)
[2018-08-09 09:29] LABS: Appearance Urine UA CLEAR; Bilirubin Urine UA NEGATIVE (NEGATIVE); Color Urine UA YELLOW; Glucose Urine UA NEGATIVE (Negative); Ketones Urine UA NEGATIVE (NEGATIVE); Leukocyte Esterase Urine UA NEGATIVE (NEGATIVE); Nitrite Urine UA NEGATIVE (Negative); Occult Blood Urine UA 1+ (Negative); Protein Urine UA 1+ (Negative); Specific Gravity Urine UA >=1.030 (1.000-1.035); Urobilinogen Urine UA 0.2 E.U./dL (0.2)
[2018-08-09 09:40] LABS: Alanine Aminotransferase 42 IU/L (21-72); Albumin Globulin Ratio 1.7 (1.0-2.8); Alkaline Phosphatase 66 U/L (38-126); Aspartate Aminotransferase 22 IU/L (17-59); BUN Creatinine Ratio 15.6 (6-22); Bilirubin Total 0.4 mg/dL (0.2-1.3); Blood Urea Nitrogen 25 mg/dL (9-20); Carbon Dioxide 27 mmol/L (22-32); Chloride 102 mmol/L (98-107); Globulin 2.9 g/dL (1.7-4.1); Glucose 105 mg/dL (70-100); HEMOLYSIS < 15 (0-50); Magnesium 1.5 mg/dL (1.6-2.3); Phosphorous 3.3 mg/dL (2.5-4.5); Potassium 4.1 mmol/L (3.4-5.1); Sodium 140 mmol/L (137-145); Total Protein 7.9 g/dL (6.3-8.2)
[2018-08-09 09:45] LABS: Culture Indicated Urine Cult Not Indicated; RBC Urine 1-5/HPF (0-5/HPF)
[2018-08-09 10:49] LABS: Creatinine Urine Random 131.1 mg/dL; Protein (Total) Urine Random 43 mg/dL (0-12); Protein Creatinine Ratio Urine 0.32 GRAM/24H
[2018-08-10 15:35] LABS: Parathyroid Hormone Int 53 pg/mL (14-64)
[2018-08-11 08:05] LABS: Tacrolimus 4.7 mcg/L (5.0-20.0)
== END ==
PROVIDERS: Visit Provider Student in an Organized Health Care Education/Training Program
DX: D70.9 Neutropenia, unspecified (principal); N05.8 Unspecified nephritic syndrome with other morphologic changes; T86.10 Unspecified complication of kidney transplant; N30.00 Acute cystitis without hematuria; R80.9 Proteinuria, unspecified; D63.1 Anemia in chronic kidney disease
CPT/HCPCS: 36415; 80053; 80197; 81001; 82570; 83735; 83970; 84100; 84156; 85025

== ENCOUNTER → 2018-11-04 08:06 | Outpatient (CLI) | payer MEDICARE, MEDICAID, SELFPAY ==
[2018-11-04 08:53] LABS: Hematocrit 46.1 % (41-53); Hemoglobin 15.4 g/dL (13.5-17.5); Mean Corpuscular HGB Conc 33.5 % (30-36); Mean Corpuscular Hemoglobin 28.5 PG (26-34); Mean Corpuscular Volume 85.2 fL (80-100); Platelet Count 210 X10^3/uL (150-400); Red Blood Cell Count 5.41 X10^6/uL (4.5-5.9); Red Cell Distribution Width 13.3 % (11.6-14.8); White Blood Cell Count 6.6 X10^3/uL (4.5-11.0)
[2018-11-04 09:14] LABS: Alanine Aminotransferase 26 IU/L (21-72); Albumin 4.6 g/dL (3.5-5.0); Albumin Globulin Ratio 1.6 (1.0-2.8); Alkaline Phosphatase 84 U/L (38-126); Aspartate Aminotransferase 19 IU/L (17-59); BUN Creatinine Ratio 13.6 (6-22); Bilirubin Total 0.6 mg/dL (0.2-1.3); Blood Urea Nitrogen 19 mg/dL (9-20); Calcium 9.8 mg/dL (8.4-10.2); Carbon Dioxide 25 mmol/L (22-32); Chloride 102 mmol/L (98-107); Estimated Glomerular Filt Rate 59.5 mL/min (>60); Globulin 2.9 g/dL (1.7-4.1); Glucose 110 mg/dL (70-100); HEMOLYSIS < 15 (0-50); Magnesium 1.7 mg/dL (1.6-2.3); Potassium 4.1 mmol/L (3.4-5.1); Sodium 138 mmol/L (137-145); Total Protein 7.5 g/dL (6.3-8.2)
[2018-11-04 09:37] LABS: Appearance Urine UA CLEAR; Bilirubin Urine UA NEGATIVE (NEGATIVE); Color Urine UA YELLOW; Glucose Urine UA NEGATIVE (Negative); Ketones Urine UA NEGATIVE (NEGATIVE); Leukocyte Esterase Urine UA NEGATIVE (NEGATIVE); Nitrite Urine UA NEGATIVE (Negative); Occult Blood Urine UA 1+ (Negative); Protein Urine UA NEGATIVE (Negative); Specific Gravity Urine UA 1.025 (1.000-1.035); Urobilinogen Urine UA 0.2 E.U./dL (0.2)
[2018-11-04 09:44] LABS: Bacteria Urine Few (2-10); Culture Indicated Urine Cult Not Indicated; RBC Urine 0-1/HPF (0-5/HPF); WBC Urine 0-1/HPF (0-5/HPF)
[2018-11-04 10:50] LABS: Creatinine Urine Random 159.1 mg/dL; Protein (Total) Urine Random 20 mg/dL (0-12); Protein Creatinine Ratio Urine 0.12 GRAM/24H
[2018-11-08 09:45] LABS: Tacrolimus 5.8 mcg/L (5.0-20.0)
[2018-11-08 14:24] LABS: Parathyroid Hormone Int 69 pg/mL (14-64)
== END ==
PROVIDERS: Visit Provider Student in an Organized Health Care Education/Training Program
DX: N18.9 Chronic kidney disease, unspecified; D63.1 Anemia in chronic kidney disease; N39.0 Urinary tract infection, site not specified; R80.9 Proteinuria, unspecified; E83.40 Disorders of magnesium metabolism, unspecified; Z51.81 Encounter for therapeutic drug level monitoring
CPT/HCPCS: 36415; 80053; 80197; 81001; 82570; 83735; 83970; 84100; 84156; 85027

== ENCOUNTER → 2018-11-06 18:03 | Outpatient (CLI) | payer MEDICARE, MEDICAID, SELFPAY ==
--- NOTE | 2018-11-06 | DI.RAD.S_ITS ---
PROCEDURE: XR LUMBAR SPINE 2-3V INDICATIONS: Sprain of ligaments of lumbar spine, initial encounter TECHNIQUE: 3 views of the lumbar spine were acquired. COMPARISON: None. FINDINGS: Bones: 5 [id number] vertebrae are present. There is normal bony alignment. No vertebral body compression fractures. No suspicious bony lesions. Soft tissues: Overlying bowel gas pattern is normal. No suspicious soft tissue calcifications. IMPRESSION: No acute fracture. No osseous lesion. If clinical suspicion and/or symptoms persist, further assessment with repeat plainfilms, or advanced imaging (e.g., CT, MRI, or bone scan) may be helpful for further assessment. Dictated by: Mason Brink M.D. on 11/06/2018 at 18:25 Approved by: Mason Brink M.D. on 11/06/2018 at 18:25
== END ==
PROVIDERS: Visit Provider Chiropractor
DX: S33.5XXA Sprain of ligaments of lumbar spine, initial encounter (principal)
CPT/HCPCS: 72100

== ENCOUNTER 2018-12-19 19:57 | Emergency (ER) | payer MEDICARE, MEDICAID, SELFPAY ==
[2018-12-19] VITALS (7 sets, daily range): BP systolic 116–140; BP diastolic 71–79; PULSE 69–81; RESP 16–22; TEMP 37.2; O2SAT 95–98; BMI 34.4
--- NOTE | 2018-12-19 20:18 | DI.RAD.S_ITS ---
PROCEDURE: XR CHEST 1V INDICATIONS: suspected sepsis TECHNIQUE: One view of the chest was acquired. COMPARISON: [facility], CR, XR CHEST 2 VIEWS, 08/24/2017, 15:48. FINDINGS: Surgical changes and devices: None. Lungs and pleura: Coarsened appearance of bibasilar interstitial opacities. Mediastinum: Mediastinal contours appear normal. Heart size is normal. Bones and chest wall: No suspicious bony lesions. Overlying soft tissues appear unremarkable. IMPRESSION: Coarsened bibasilar interstitial opacities. This could represent atelectasis. However developing pneumonia cannot be excluded. Dictated by: Donna Jarvis M.D. on 12/19/2018 at 20:36 Approved by: Donna Jarvis M.D. on 12/19/2018 at 20:37
--- NOTE | 2018-12-19 20:38 | ED_ITS ---
HPI - Nausea/Vomiting/Diarrhea General Chief complaint: Nausea/Vomiting/Diarrhea Stated complaint: MUCUS THROWING UP COUGH Time Seen by Provider: 12/19/18 20:38 Source: patient Mode of arrival: ambulatory Limitations: no limitations History of Present Illness HPI Narrative: 33-year-old male who in February of last year underwent a kidney transplant secondary to renal failure. He is on 5 mg of prednisone on a daily basis and also his anti-rejection medications. He states he has not had any issues since the procedure. Approximately 1 week ago he started to not feel well. Subjective fevers nonproductive cough. No urinary symptoms. Still producing urine. Has occasional sore throat. No rashes. Call the care coordinator at the [facility] who advised that he come to the emergency department for evaluation. Related Data Home Medications Medication Instructions Recorded Confirmed amlodipine 10 mg PO DAILY 12/19/18 12/19/18 aspirin [Aspir-81] 81 mg PO DAILY 12/19/18 12/19/18 carvedilol 25 mg PO BID 12/19/18 12/19/18 cholecalciferol (vitamin D3) 1,000 unit PO DAILY 12/19/18 12/19/18 [Vitamin D3] lisinopril 5 mg PO DAILY 12/19/18 12/19/18 magnesium oxide 400 mg PO TID 12/19/18 12/19/18 [id number] 1 tab PO DAILY 12/19/18 12/19/18 [Multiple Vitamin, Womens] mycophenolate sodium [Myfortic] 360 mg PO QAM 12/19/18 12/19/18 prednisone 5 mg PO DAILY 12/19/18 12/19/18 sertraline 50 mg PO DAILY 12/19/18 12/19/18 spironolactone 25 mg PO DAILY 12/19/18 12/19/18 tacrolimus 4 mg PO Q12H 12/19/18 12/19/18 Previous Rx's Medication Instructions Recorded azithromycin 250 mg PO DAILY 4 Days #4 tab 12/20/18 Allergies Allergy/AdvReac Type Severity Reaction Status Date / Time No Known Drug Allergies Allergy Verified 12/19/18 20:15 Review of Systems Constitutional Reports chills, Reports fatigue, Reports fever(s) (Subjective) and Reports lethargy Cardiovascular Denies chest pain and Denies dyspnea Respiratory Reports cough and Denies dyspnea Gastrointestinal Gastrointestinal: Denies abdominal pain, Denies nausea and Denies vomiting Genitourinary Denies dysuria Musculoskeletal Denies myalgias and Denies arthralgias Integumentary/Breasts Denies rash Neurologic Denies behavioral changes Psychiatric Denies behavioral changes Endocrine Reports fatigue Hematologic/Lymphatic Denies easy bleeding and Denies easy bruising [facility] Medical History Renal failure (Acute) Surgical History Renal transplant recipient (Acute) Social History Smoking Status: Never smoker Social History Smoking Status: Never smoker Exam Initial Vital Signs Initial Vital Signs: Vital Signs Temperature 99.0 F 12/19/18 20:11 Pulse Rate 81 12/19/18 20:11 Respiratory Rate 16 12/19/18 20:11 Blood Pressure 116/75 12/19/18 20:11 Pulse Oximetry 98 12/19/18 20:11 Const General: cooperative, comfortable, well developed, well groomed and No acute distress Orientation: alert, awake and oriented x3 HENMT Head: normal to inspection and normocephalic Resp Effort & Inspection: normal respiratory effort Auscultation: clear to auscultation bilaterally Cardio Rate: regular rate Rhythm: regular rhythm Pulses: radial pulses present GI Inspection: non-distended Palpation: soft, No firm and No tender Back/Spine/Pelvis Back: No CVA tenderness Skin Lesions: no lesions Rashes: no rashes Neuro General: alert, awake and oriented x3 Cognition: normal cognition Speech: speech normal Gait: normal gait Motor: muscle tone normal throughout Sensory Exam: no sensory deficits noted Extrem General: normal to inspection and capillary refill normal Psych Appearance: grossly normal and well kempt Course Orders Ordered: ED Orders 12/19/18 20:18 XR chest 1V Stat 12/19/18 20:31 Complete Blood Count AUTO DIFF Stat Comprehensive Metabolic Panel Stat Lactate (Lactic Acid) Stat Lipase Stat Partial Thromboplastin Time Stat Procalcitonin Stat Prothrombin Time INR Stat 12/19/18 20:49 Blood Culture Stat 12/19/18 22:35 Urine Microscopic Stat Discontinued Medications Azithromycin (Zithromax) 500 mg PO NOW ONE Stop: 12/20/18 00:49 Last Admin: 12/20/18 00:53 Dose: 500 mg Sodium Chloride (Normal Saline 0.9%) 1,000 mls @ 1,000 mls/hr IV BOLUS ONE Stop: 12/19/18 21:17 Last Infusion: 12/19/18 22:05 Dose: 0 mls/hr Admin: 12/19/18 20:43 Dose: 1,000 mls/hr Vital Signs - 8 hr 12/19/18 20:11 12/19/18 20:30 12/19/18 20:34 Temperature 99.0 F Pulse Rate 81 80 79 Respiratory Rate 16 18 22 Blood Pressure 116/75 Blood Pressure [Left Arm] 131/79 131/79 Pulse Oximetry 98 97 95 12/19/18 21:00 12/19/18 21:30 12/19/18 22:00 Temperature Pulse Rate 77 76 76 Respiratory Rate 17 16 16 Blood Pressure Blood Pressure [Left Arm] 122/75 136/71 125/74 Pulse Oximetry 97 97 97 12/19/18 23:04 12/20/18 00:18 12/20/18 00:49 Temperature 98.5 F Pulse Rate 69 71 Respiratory Rate 16 13 Blood Pressure Blood Pressure [Left Arm] 140/77 129/80 Pulse Oximetry 98 99 MDM - Nausea/Vomiting/Diarrhea Lab Data Attestation: I reviewed the patient's lab results. Result diagrams: 12/19/18 20:31 12/19/18 20:31 Lab Results 12/19/18 12/19/18 12/19/18 Range/Units 20:31 20:31 20:31 WBC 6.8 (4.5-11.0) X10^3/uL RBC 5.16 (4.5-5.9) X10^6/uL Hgb 14.5 (13.5-17.5) g/dL Hct 43.0 (41-53) % MCV 83.3 (80-100) fL MCH 28.2 (26-34) PG MCHC 33.8 (30-36) % RDW 12.9 (11.6-14.8) % Plt Count 208 (150-400) X10^3/uL Neut % (Auto) 86.1 H (50-75) % Lymph % (Auto) 4.5 L (25-40) % Bollinger % (Auto) 8.3 (3-14) % Eos % (Auto) 1.0 L (2-4) % Baso % (Auto) 0.1 (0-2) % Neut # (Auto) 5800 (6323-5855) /uL Lymph # (Auto) 300 L (6475-3501) /uL Bollinger # (Auto) 600 (0-900) /uL Eos # (Auto) 100 (0-450) /uL Baso # (Auto) 0 (0-100) /uL PT 12.6 (10.1-12.7) SECONDS INR 1.1 (0.9-1.3) APTT 32 (26.4-36.2) SECONDS Sodium (137-145) mmol/L Potassium (3.4-5.1) mmol/L Chloride (98-107) mmol/L Carbon Dioxide (22-32) mmol/L BUN (9-20) mg/dL Creatinine (0.66-1.25) mg/dL Estimated GFR (>60) mL/min BUN/Creatinine Ratio (6-22) Glucose (70-100) mg/dL Lactate (0.7-2.1) mmol/L Calcium (8.4-10.2) mg/dL Total Bilirubin (0.2-1.3) mg/dL AST (17-59) IU/L ALT (21-72) IU/L Alkaline Phosphatase (38-126) U/L Total Protein (6.3-8.2) g/dL Albumin (3.5-5.0) g/dL Globulin (1.7-4.1) g/dL Albumin/Globulin Ratio (1.0-2.8) Lipase (23-300) U/L Procalcitonin < 0.05 (<0.5) ng/mL Urine RBC (0-5/HPF) Urine WBC (0-5/HPF) Urine Bacteria (None) Ur Culture Indicated? 12/19/18 12/19/18 12/19/18 Range/Units 20:31 20:31 22:35 WBC (4.5-11.0) X10^3/uL RBC (4.5-5.9) X10^6/uL Hgb (13.5-17.5) g/dL Hct (41-53) % MCV (80-100) fL MCH (26-34) PG MCHC (30-36) % RDW (11.6-14.8) % Plt Count (150-400) X10^3/uL Neut % (Auto) (50-75) % Lymph % (Auto) (25-40) % Bollinger % (Auto) (3-14) % Eos % (Auto) (2-4) % Baso % (Auto) (0-2) % Neut # (Auto) (1667-2215) /uL Lymph # (Auto) (5143-1320) /uL Bollinger # (Auto) (0-900) /uL Eos # (Auto) (0-450) /uL Baso # (Auto) (0-100) /uL PT (10.1-12.7) SECONDS INR (0.9-1.3) APTT (26.4-36.2) SECONDS Sodium 140 (137-145) mmol/L Potassium 4.2 (3.4-5.1) mmol/L Chloride 101 (98-107) mmol/L Carbon Dioxide 25 (22-32) mmol/L BUN 19 (9-20) mg/dL Creatinine 1.40 H (0.66-1.25) mg/dL Estimated GFR 59.1 L (>60) mL/min BUN/Creatinine Ratio 13.6 (6-22) Glucose 103 H (70-100) mg/dL Lactate 1.1 (0.7-2.1) mmol/L Calcium 9.3 (8.4-10.2) mg/dL Total Bilirubin 0.5 (0.2-1.3) mg/dL AST 20 (17-59) IU/L ALT 32 (21-72) IU/L Alkaline Phosphatase 79 (38-126) U/L Total Protein 7.2 (6.3-8.2) g/dL Albumin 4.5 (3.5-5.0) g/dL Globulin 2.7 (1.7-4.1) g/dL Albumin/Globulin Ratio 1.7 (1.0-2.8) Lipase 42 (23-300) U/L Procalcitonin (<0.5) ng/mL Urine RBC None seen (0-5/HPF) Urine WBC None seen (0-5/HPF) Urine Bacteria None seen (None) Ur Culture Indicated? Cult not indicated Urine Dip Bedside Urine Glucose Negative Bedside Urine Bilirubin - Negative Bedside Urine Ketone - Negative Urine Specific Santo 1.030 Bedside Urine Occult Blood + Bedside Urine pH 5.5 Bedside Urine Protein - Negative Bedside Urine Urobilinogen - Negative Bedside Urine Nitrite - Negative Bedside Urine Leukocytes - Negative Esterase Imaging Data Chest x-ray: Radiologist's impression: [address] [address] XRay Report Signed Patient: Irwin Koehler [facility]#: [id number] : 1985Acct:[id number] Age/Sex: 33 / MDate of Service: 12/19/18 Loc: ED Accession Number: [id number] Procedure: XR chest 1V Ordering Provider: Andrés Young D.O. PROCEDURE: XR CHEST 1V INDICATIONS: suspected sepsis TECHNIQUE: One view of the chest was acquired. COMPARISON: [facility], , XR CHEST 2 VIEWS, 08/24/2017, 15:48. FINDINGS: Surgical changes and devices: None. Lungs and pleura: Coarsened appearance of bibasilar interstitial opacities. Mediastinum: Mediastinal contours appear normal. Heart size is normal. Bones and chest wall: No suspicious bony lesions. Overlying soft tissues appear unremarkable. IMPRESSION: Coarsened bibasilar interstitial opacities. This could represent atelectasis. However developing pneumonia cannot be excluded. Dictated by: Donna Jarvis M.D. on 12/19/2018 at 20:36 Approved by: Donna Jarvis M.D. on 12/19/2018 at 20:37 MDM Narrative Medical decision making narrative: Patient is nontoxic appearing. He is not hypoxic, does not have elevated white count but does have a left shift. Lactate procalcitonin is negative. Official read of the chest x-ray shows concerns for bibasilar atelectasis versus developing pneumonia. I did discuss the case with Dr. Carpio with the transplant service at the [facility] who did recommend that we treat him with antibiotics given these findings. Patient was given his 1st dose of antibiotics here in the emergency department and a prescription for the remainder. No other source of infection found. Creatinine is at baseline. Patient was given return precautions and follow-up instructions. He expressed understanding and agreement with plan. Discharge Plan Departure Patient Disposition: Home Clinical Impression: Pneumonia Qualifiers: Pneumonia type: due to unspecified organism Laterality: unspecified laterality Lung location: unspecified part of lung Qualified Code(s): J18.9 - Pneumonia, unspecified organism Discharge Date/Time: 12/20/18 01:00 Interventions: ED Discharge Assessment Last Done: 12/20/18 00:57 Instructions: Pneumonia-Adult Activity Restrictions/Additional Instructions: After discussion with the transplant specialist at the [facility] they do recommend starting you on antibiotics. Your 1st dose was given here in the emergency department. Contact them for a follow-up. Take the remainder of the antibiotics as directed. Return to the emergency department for any new or worsening symptoms Prescriptions: New azithromycin 250 mg tablet 250 mg PO DAILY 4 Days Qty: 4 RF: 0 No Action carvedilol 25 mg tablet 25 mg PO BID RF: 0 sertraline 100 mg tablet 50 mg PO DAILY RF: 0 prednisone 5 mg tablet 5 mg PO DAILY RF: 0 spironolactone 25 mg tablet 25 mg PO DAILY RF: 0 amlodipine 10 mg tablet 10 mg PO DAILY RF: 0 lisinopril 5 mg tablet 5 mg PO DAILY RF: 0 aspirin [Aspir-81] 81 mg Tablet,Delayed Release (Dr/Ec) 81 mg PO DAILY RF: 0 tacrolimus 1 mg Capsule 4 mg PO Q12H RF: 0 cholecalciferol (vitamin D3) [Vitamin D3] 1,000 unit Capsule 1,000 unit PO DAILY RF: 0 Multiple Vitamin, Womens Tablet 1 tab PO DAILY RF: 0 mycophenolate sodium [Myfortic] 360 mg Tablet,Delayed Release (Dr/Ec) 360 mg PO QAM RF: 0 magnesium oxide 400 mg magnesium Capsule 400 mg PO TID RF: 0
[2018-12-19] MEDS: SODIUM CHLORIDE 0.9% 1,000 ML 1000 ML IV (20:43)
[2018-12-19 20:46] LABS: Add Manual Diff / Slide Review NO; Basophils Absolute Auto 0 /uL (0-100); Basophils Percent Auto 0.1 % (0-2); Eosinophils Absolute Auto 100 /uL (0-450); Hemoglobin 14.5 g/dL (13.5-17.5); Lymphocytes Absolute Auto 300 /uL (1100-4500); Lymphocytes Percent Auto 4.5 % (25-40); Mean Corpuscular HGB Conc 33.8 % (30-36); Mean Corpuscular Hemoglobin 28.2 PG (26-34); Mean Corpuscular Volume 83.3 fL (80-100); Monocytes Absolute Auto 600 /uL (0-900); Monocytes Percent Auto 8.3 % (3-14); Neutrophils Absolute Auto 5800 /uL (1500-7000); Neutrophils Percent Auto 86.1 % (50-75); Platelet Count 208 X10^3/uL (150-400); Red Blood Cell Count 5.16 X10^6/uL (4.5-5.9); Red Cell Distribution Width 12.9 % (11.6-14.8); White Blood Cell Count 6.8 X10^3/uL (4.5-11.0)
[2018-12-19 20:50] LABS: INR 1.1 (0.9-1.3); Prothrombin Time 12.6 SECONDS (10.1-12.7)
[2018-12-19 20:52] LABS: PTT Partial Thromboplastin Tim 32 SECONDS (26.4-36.2)
[2018-12-19 20:56] LABS: Alanine Aminotransferase 32 IU/L (21-72); Albumin 4.5 g/dL (3.5-5.0); Albumin Globulin Ratio 1.7 (1.0-2.8); Alkaline Phosphatase 79 U/L (38-126); Aspartate Aminotransferase 20 IU/L (17-59); BUN Creatinine Ratio 13.6 (6-22); Bilirubin Total 0.5 mg/dL (0.2-1.3); Blood Urea Nitrogen 19 mg/dL (9-20); Calcium 9.3 mg/dL (8.4-10.2); Carbon Dioxide 25 mmol/L (22-32); Chloride 101 mmol/L (98-107); Estimated Glomerular Filt Rate 59.1 mL/min (>60); Globulin 2.7 g/dL (1.7-4.1); Glucose 103 mg/dL (70-100); HEMOLYSIS < 15 (0-50); Lipase 42 U/L (23-300); Potassium 4.2 mmol/L (3.4-5.1); Sodium 140 mmol/L (137-145); Total Protein 7.2 g/dL (6.3-8.2)
[2018-12-19 20:57] LABS: Lactate (Lactic Acid) 1.1 mmol/L (0.7-2.1)
[2018-12-19 21:23] LABS: Procalcitonin < 0.05 ng/mL (<0.5)
[2018-12-19 22:38] LABS: Bacteria Urine None Seen; RBC Urine None Seen (0-5/HPF); WBC Urine None Seen (0-5/HPF)
[2018-12-19 22:48] LABS: Culture Indicated Urine Cult Not Indicated
[2018-12-20 00:18] VITALS: TEMP 36.9
[2018-12-20 00:49] VITALS: BP 129/80; PULSE 71; RESP 13; O2SAT 99
[2018-12-20] MEDS: AZITHROMYCIN 250 MG TABLET 500 MG PO (00:53)
== END 2018-12-20 01:00 | disposition home or self-care (01) ==
PROVIDERS: Emergency Provider Emergency Medicine
DX: J18.9 Pneumonia, unspecified organism (principal); Z94.0 Kidney transplant status
CPT/HCPCS: 36415; 36591; 71045; 80053; 81003; 81015; 83605; 83690; 84145; 85025; 85610; 85730; 87040; 96360; 99283; 99284

== ENCOUNTER → 2019-02-09 09:11 | Outpatient (CLI) | payer MEDICARE, MEDICAID, SELFPAY ==
[2019-02-09 10:20] LABS: Appearance Urine UA CLEAR; Bilirubin Urine UA NEGATIVE (NEGATIVE); Color Urine UA YELLOW; Glucose Urine UA NEGATIVE (Negative); Ketones Urine UA NEGATIVE (NEGATIVE); Leukocyte Esterase Urine UA NEGATIVE (NEGATIVE); Nitrite Urine UA NEGATIVE (Negative); Occult Blood Urine UA 1+ (Negative); Protein Urine UA NEGATIVE (Negative); Specific Gravity Urine UA 1.025 (1.000-1.035); Urobilinogen Urine UA 0.2 E.U./dL (0.2)
[2019-02-09 10:23] LABS: Hematocrit 44.8 % (41-53); Hemoglobin 15.2 g/dL (13.5-17.5); Mean Corpuscular HGB Conc 33.8 % (30-36); Mean Corpuscular Volume 82.9 fL (80-100); Platelet Count 189 X10^3/uL (150-400); Red Blood Cell Count 5.41 X10^6/uL (4.5-5.9); Red Cell Distribution Width 13.4 % (11.6-14.8); White Blood Cell Count 5.9 X10^3/uL (4.5-11.0)
[2019-02-09 10:43] LABS: Bacteria Urine Moderate (10-30); Culture Indicated Urine Cult Not Indicated; RBC Urine 0-1/HPF (0-5/HPF); WBC Urine 0-1/HPF (0-5/HPF)
[2019-02-09 10:46] LABS: Creatinine Urine Random 187.7 mg/dL; Protein (Total) Urine Random 10 mg/dL (0-12); Protein Creatinine Ratio Urine 0.05 GRAM/24H
[2019-02-09 10:51] LABS: Alanine Aminotransferase 52 IU/L (21-72); Albumin 4.6 g/dL (3.5-5.0); Albumin Globulin Ratio 1.7 (1.0-2.8); Alkaline Phosphatase 93 U/L (38-126); Aspartate Aminotransferase 34 IU/L (17-59); BUN Creatinine Ratio 17.9 (6-22); Bilirubin Total 0.6 mg/dL (0.2-1.3); Blood Urea Nitrogen 25 mg/dL (9-20); Calcium 9.9 mg/dL (8.4-10.2); Carbon Dioxide 28 mmol/L (22-32); Chloride 102 mmol/L (98-107); Estimated Glomerular Filt Rate 59.1 mL/min (>60); Globulin 2.7 g/dL (1.7-4.1); Glucose 99 mg/dL (70-100); HEMOLYSIS < 15 (0-50); Magnesium 1.5 mg/dL (1.6-2.3); Phosphorous 3.5 mg/dL (2.5-4.5); Potassium 4.6 mmol/L (3.4-5.1); Sodium 140 mmol/L (137-145); Total Protein 7.3 g/dL (6.3-8.2)
[2019-02-11 07:51] LABS: Tacrolimus 10.7 mcg/L (5.0-20.0)
[2019-02-11 15:13] LABS: Parathyroid Hormone Int 18 pg/mL (14-64)
== END ==
PROVIDERS: Visit Provider Student in an Organized Health Care Education/Training Program
DX: N18.9 Chronic kidney disease, unspecified (principal); D63.1 Anemia in chronic kidney disease; R80.9 Proteinuria, unspecified; E21.1 Secondary hyperparathyroidism, not elsewhere classified; E83.40 Disorders of magnesium metabolism, unspecified; Z51.81 Encounter for therapeutic drug level monitoring; N49.0 Inflammatory disorders of seminal vesicle; E83.39 Other disorders of phosphorus metabolism
CPT/HCPCS: 36415; 80053; 80197; 81001; 82570; 83735; 83970; 84100; 84156; 85027

== ENCOUNTER → 2019-03-02 08:10 | Outpatient (CLI) | payer MEDICARE, MEDICAID, SELFPAY | PROVIDERS: Visit Provider Student in an Organized Health Care Education/Training Program | DX: T86.10 Unspecified complication of kidney transplant (principal) | CPT/HCPCS: 36415; 80197 ==

== ENCOUNTER → 2019-03-08 09:49 | Outpatient (CLI) | payer MEDICARE, MEDICAID, SELFPAY ==
[2019-03-10 17:38] LABS: Tacrolimus 9.6 mcg/L (5.0-20.0)
== END ==
PROVIDERS: Visit Provider Student in an Organized Health Care Education/Training Program
DX: T86.10 Unspecified complication of kidney transplant (principal)
CPT/HCPCS: 36415; 80197

== ENCOUNTER → 2019-04-14 09:24 | Outpatient (CLI) | payer MEDICARE, MEDICAID, SELFPAY ==
[2019-04-14 10:14] LABS: Add Manual Diff / Slide Review NO; Basophils Absolute Auto 0 /uL (0-100); Basophils Percent Auto 0.4 % (0-2); Eosinophils Absolute Auto 100 /uL (0-450); Hematocrit 44.8 % (41-53); Hemoglobin 15.2 g/dL (13.5-17.5); Lymphocytes Absolute Auto 500 /uL (1100-4500); Mean Corpuscular Hemoglobin 28.4 PG (26-34); Mean Corpuscular Volume 83.7 fL (80-100); Monocytes Absolute Auto 500 /uL (0-900); Monocytes Percent Auto 7.4 % (3-14); Neutrophils Absolute Auto 5200 /uL (1500-7000); Neutrophils Percent Auto 83.2 % (50-75); Platelet Count 200 X10^3/uL (150-400); Red Blood Cell Count 5.35 X10^6/uL (4.5-5.9); Red Cell Distribution Width 13.6 % (11.6-14.8); White Blood Cell Count 6.2 X10^3/uL (4.5-11.0)
[2019-04-14 10:54] LABS: Alanine Aminotransferase 45 IU/L (<50); Albumin 4.8 g/dL (3.5-5.0); Alkaline Phosphatase 87 U/L (38-126); Aspartate Aminotransferase 32 IU/L (17-59); BUN Creatinine Ratio 19.2 (6-22); Bilirubin Total 0.7 mg/dL (0.2-1.3); Blood Urea Nitrogen 23 mg/dL (9-20); Calcium 9.7 mg/dL (8.4-10.2); Carbon Dioxide 26 mmol/L (22-32); Chloride 100 mmol/L (98-107); Estimated Glomerular Filt Rate > 60.0 mL/min (>60); Globulin 2.4 g/dL (1.7-4.1); Glucose 107 mg/dL (70-100); HEMOLYSIS < 15 (0-50); Magnesium 1.4 mg/dL (1.6-2.3); Phosphorous 3.1 mg/dL (2.5-4.5); Potassium 4.1 mmol/L (3.4-5.1); Sodium 136 mmol/L (137-145); Total Protein 7.2 g/dL (6.3-8.2)
[2019-04-17 10:59] LABS: Tacrolimus 6.4 mcg/L (5.0-20.0)
== END ==
PROVIDERS: Visit Provider Internal Medicine Nephrology
DX: Z48.298 Encounter for aftercare following other organ transplant (principal); Z94.0 Kidney transplant status; T86.40 Unspecified complication of liver transplant; E83.40 Disorders of magnesium metabolism, unspecified
CPT/HCPCS: 36415; 80053; 80197; 83735; 84100; 85025

== ENCOUNTER → 2019-06-02 09:08 | Outpatient (CLI) | payer MEDICARE, MEDICAID, SELFPAY ==
[2019-06-02 09:21] LABS: Bacteria Urine None Seen; WBC Urine None Seen (0-5/HPF)
[2019-06-02 10:07] LABS: Hematocrit 45.9 % (41-53); Hemoglobin 15.8 g/dL (13.5-17.5); Mean Corpuscular HGB Conc 34.4 % (30-36); Mean Corpuscular Hemoglobin 28.9 PG (26-34); Platelet Count 210 X10^3/uL (150-400); Red Blood Cell Count 5.47 X10^6/uL (4.5-5.9); Red Cell Distribution Width 13.1 % (11.6-14.8); White Blood Cell Count 6.8 X10^3/uL (4.5-11.0)
[2019-06-02 10:15] LABS: Appearance Urine UA CLEAR; Bilirubin Urine UA NEGATIVE (NEGATIVE); Color Urine UA YELLOW; Glucose Urine UA NEGATIVE (Negative); Ketones Urine UA NEGATIVE (NEGATIVE); Leukocyte Esterase Urine UA NEGATIVE (NEGATIVE); Nitrite Urine UA NEGATIVE (Negative); Occult Blood Urine UA 2+ (Negative); Protein Urine UA NEGATIVE (Negative); Urobilinogen Urine UA 0.2 E.U./dL (0.2)
[2019-06-02 10:34] LABS: Culture Indicated Urine Cult Not Indicated; RBC Urine 5-10/HPF (0-5/HPF)
[2019-06-02 10:58] LABS: Alanine Aminotransferase 36 IU/L (<50); Albumin 4.7 g/dL (3.5-5.0); Alkaline Phosphatase 89 U/L (38-126); Aspartate Aminotransferase 25 IU/L (17-59); BUN Creatinine Ratio 16.7 (6-22); Bilirubin Total 0.5 mg/dL (0.2-1.3); Blood Urea Nitrogen 20 mg/dL (9-20); Calcium 9.7 mg/dL (8.4-10.2); Carbon Dioxide 28 mmol/L (22-32); Chloride 100 mmol/L (98-107); Estimated Glomerular Filt Rate > 60.0 mL/min (>60); Globulin 2.4 g/dL (1.7-4.1); Glucose 104 mg/dL (70-100); HEMOLYSIS < 15 (0-50); Magnesium 1.4 mg/dL (1.6-2.3); Phosphorous 3.3 mg/dL (2.5-4.5); Sodium 138 mmol/L (137-145); Total Protein 7.1 g/dL (6.3-8.2)
[2019-06-02 11:00] LABS: Creatinine Urine Random 75.4 mg/dL; Protein (Total) Urine Random 34 mg/dL (0-12); Protein Creatinine Ratio Urine 0.45 GRAM/24H
[2019-06-05 08:17] LABS: Tacrolimus 5.7 mcg/L (5.0-20.0)
[2019-06-06 16:41] LABS: Parathyroid Hormone Int 13 pg/mL (14-64)
== END ==
PROVIDERS: Visit Provider Student in an Organized Health Care Education/Training Program
DX: D70.9 Neutropenia, unspecified (principal); N30.00 Acute cystitis without hematuria; R80.9 Proteinuria, unspecified; T86.10 Unspecified complication of kidney transplant; E83.40 Disorders of magnesium metabolism, unspecified; E83.30 Disorder of phosphorus metabolism, unspecified; N25.81 Secondary hyperparathyroidism of renal origin; D63.1 Anemia in chronic kidney disease
CPT/HCPCS: 36415; 80053; 80197; 81001; 82570; 83735; 83970; 84100; 84156; 85027

== ENCOUNTER → 2019-09-25 09:12 | Outpatient (CLI) | payer MEDICARE, MEDICAID, SELFPAY ==
[2019-09-25 10:27] LABS: Hematocrit 48.3 % (41-53); Hemoglobin 16.4 g/dL (13.5-17.5); Mean Corpuscular HGB Conc 33.9 % (30-36); Mean Corpuscular Hemoglobin 28.7 PG (26-34); Mean Corpuscular Volume 84.8 fL (80-100); Platelet Count 216 X10^3/uL (150-400); Red Cell Distribution Width 13.2 % (11.6-14.8); White Blood Cell Count 7.2 X10^3/uL (4.5-11.0)
[2019-09-25 10:32] LABS: Appearance Urine UA CLEAR; Bilirubin Urine UA NEGATIVE (NEGATIVE); Color Urine UA YELLOW; Glucose Urine UA NEGATIVE (Negative); Ketones Urine UA NEGATIVE (NEGATIVE); Leukocyte Esterase Urine UA NEGATIVE (NEGATIVE); Nitrite Urine UA NEGATIVE (Negative); Occult Blood Urine UA 2+ (Negative); Protein Urine UA NEGATIVE (Negative); Specific Gravity Urine UA 1.015 (1.000-1.035); Urobilinogen Urine UA 0.2 E.U./dL (0.2); pH Urine UA 5.5 (4.5-8.0)
[2019-09-25 10:46] LABS: Alanine Aminotransferase 22 IU/L (<50); Albumin 4.8 g/dL (3.5-5.0); Albumin Globulin Ratio 1.6 (1.0-2.8); Alkaline Phosphatase 96 U/L (38-126); Aspartate Aminotransferase 21 IU/L (17-59); BUN Creatinine Ratio 17.7 (6-22); Bilirubin Total 0.6 mg/dL (0.2-1.3); Blood Urea Nitrogen 23 mg/dL (9-20); Calcium 9.8 mg/dL (8.4-10.2); Carbon Dioxide 27 mmol/L (22-32); Chloride 98 mmol/L (98-107); Estimated Glomerular Filt Rate > 60.0 mL/min (>60); Glucose 102 mg/dL (70-100); HEMOLYSIS < 15 (0-50); Magnesium 1.7 mg/dL (1.6-2.3); Sodium 134 mmol/L (137-145); Total Protein 7.8 g/dL (6.3-8.2)
[2019-09-25 10:57] LABS: Bacteria Urine Occasional (0-1); Culture Indicated Urine Cult Not Indicated; RBC Urine 0-1/HPF (0-5/HPF); WBC Urine 0-1/HPF (0-5/HPF)
[2019-09-26 03:14] LABS: Tacrolimus 4.9 ng/mL (2.0-20.0)
[2019-09-28 10:48] LABS: BK Virus, DNA, QN, PCR Negative copies/mL (Negative)
== END ==
PROVIDERS: Referring Provider Student in an Organized Health Care Education/Training Program; Visit Provider Student in an Organized Health Care Education/Training Program
DX: D70.9 Neutropenia, unspecified (principal); D63.1 Anemia in chronic kidney disease; N05.9 Unspecified nephritic syndrome with unspecified morphologic changes; E83.40 Disorders of magnesium metabolism, unspecified; B34.9 Viral infection, unspecified; N30.00 Acute cystitis without hematuria
CPT/HCPCS: 36415; 80053; 80197; 81001; 83735; 85027; 87799

== ENCOUNTER → 2020-01-25 08:23 | Outpatient (CLI) | payer MEDICARE, MEDICAID, SELFPAY ==
[2020-01-25 08:39] LABS: Bacteria Urine None Seen; WBC Urine None Seen (0-5/HPF)
[2020-01-25 09:25] LABS: Appearance Urine UA CLEAR; Bilirubin Urine UA NEGATIVE (NEGATIVE); Color Urine UA YELLOW; Glucose Urine UA NEGATIVE (Negative); Ketones Urine UA NEGATIVE (NEGATIVE); Leukocyte Esterase Urine UA NEGATIVE (NEGATIVE); Nitrite Urine UA NEGATIVE (Negative); Occult Blood Urine UA 3+ (Negative); Protein Urine UA TRACE (Negative); Urobilinogen Urine UA 0.2 E.U./dL (0.2); pH Urine UA 5.5 (4.5-8.0)
[2020-01-25 09:26] LABS: Creatinine Urine Random 177.1 mg/dL; Protein (Total) Urine Random 24 mg/dL (0-12); Protein Creatinine Ratio Urine 0.13 GRAM/24H
[2020-01-25 09:30] LABS: Culture Indicated Urine Cult Not Indicated; RBC Urine 5-10/HPF (0-5/HPF)
[2020-01-25 10:21] LABS: Hematocrit 45.5 % (41-53); Hemoglobin 15.5 g/dL (13.5-17.5); Mean Corpuscular HGB Conc 34.2 % (30-36); Mean Corpuscular Hemoglobin 28.7 PG (26-34); Mean Corpuscular Volume 83.8 fL (80-100); Platelet Count 192 X10^3/uL (150-400); Red Blood Cell Count 5.42 X10^6/uL (4.5-5.9); Red Cell Distribution Width 13.1 % (11.6-14.8); White Blood Cell Count 6.7 X10^3/uL (4.5-11.0)
[2020-01-25 10:35] LABS: Alanine Aminotransferase 26 IU/L (<50); Albumin 4.7 g/dL (3.5-5.0); Albumin Globulin Ratio 1.9 (1.0-2.8); Alkaline Phosphatase 95 U/L (38-126); Aspartate Aminotransferase 23 IU/L (17-59); BUN Creatinine Ratio 14.8 (6-22); Bilirubin Total 0.6 mg/dL (0.2-1.3); Blood Urea Nitrogen 18 mg/dL (9-20); Calcium 9.7 mg/dL (8.4-10.2); Carbon Dioxide 28 mmol/L (22-32); Chloride 100 mmol/L (98-107); Estimated Glomerular Filt Rate > 60.0 mL/min (>60); Globulin 2.5 g/dL (1.7-4.1); Glucose 93 mg/dL (70-100); HEMOLYSIS < 15 (0-50); Magnesium 1.6 mg/dL (1.6-2.3); Potassium 4.4 mmol/L (3.4-5.1); Sodium 136 mmol/L (137-145); Total Protein 7.2 g/dL (6.3-8.2)
[2020-01-26 05:36] LABS: Tacrolimus 5.6 ng/mL (2.0-20.0)
[2020-01-26 09:40] LABS: Parathyroid Hormone Int 69 pg/mL (15-65)
[2020-01-31 14:36] LABS: BK Virus, DNA, QN, PCR Negative copies/mL (Negative)
== END ==
PROVIDERS: PCP Internal Medicine; Referring Provider Student in an Organized Health Care Education/Training Program; Visit Provider Student in an Organized Health Care Education/Training Program
DX: D70.9 Neutropenia, unspecified (principal); D63.1 Anemia in chronic kidney disease; N05.9 Unspecified nephritic syndrome with unspecified morphologic changes; T86.10 Unspecified complication of kidney transplant; E83.40 Disorders of magnesium metabolism, unspecified; N25.81 Secondary hyperparathyroidism of renal origin; B34.9 Viral infection, unspecified; N30.00 Acute cystitis without hematuria; R80.9 Proteinuria, unspecified
CPT/HCPCS: 36415; 80053; 80197; 81001; 82570; 83735; 83970; 84156; 85027; 87799

== ENCOUNTER → 2020-03-28 12:14 | Outpatient (CLI) | payer MEDICARE, MEDICAID, SELFPAY ==
--- NOTE | 2020-03-28 | DI.RAD.S_ITS ---
PROCEDURE: XR PELVIS 1-2V INDICATIONS: right sided sciatica TECHNIQUE: 1 view(s) of the pelvis acquired. COMPARISON: [facility], CR, XR LUMBAR SPINE 2-3V, 03/28/2020, 12:26. FINDINGS: Bones: No fractures or dislocations. No suspicious bony lesions. Minimal sclerosis at the acetabular roofs. Small sclerotic focus in the left superior pubic ramus most compatible with a bone island. SI joints are symmetric. Soft tissues: Visualized bowel gas pattern is normal. No suspicious soft tissue calcifications. Clips in the right lower quadrant. Right lower quadrant renal transplant. Question of a punctate calculus in the superior pole of the renal transplant. Punctate calculus adjacent to the left L5 transverse process. IMPRESSION: No significant hip DJD. Symmetric SI joints. Right lower quadrant renal transplant. Question of punctate right transplant nonobstructing calculus. Dictated by: Yuriy Gill M.D. on 03/29/2020 at 10:18 Approved by: Yuriy Gill M.D. on 03/29/2020 at 10:22
--- NOTE | 2020-03-28 | DI.RAD.S_ITS ---
PROCEDURE: XR LUMBAR SPINE 2-3V INDICATIONS: [id number] TECHNIQUE: 3 views of the lumbar spine were acquired. COMPARISON: [facility], CR, XR LUMBAR SPINE 2-3V, 11/06/2018, 18:13. FINDINGS: Bones: 5 [id number] vertebrae are present. There is normal bony alignment. No vertebral body compression fractures. No suspicious bony lesions. Mild early disc degeneration. Soft tissues: Overlying bowel gas pattern is normal. No suspicious soft tissue calcifications. Cholecystectomy in right lower quadrant surgical clips. IMPRESSION: Endplate osteophytes indicating early mild multilevel disc degeneration. Dictated by: Rodrigo HERRERA Interpreted: Mason Brink MD on 03/28/2020 at 16:16 Approved by: Mason Brink M.D. on 03/28/2020 at 16:31
== END ==
PROVIDERS: PCP Internal Medicine; Referring Provider Chiropractor; Visit Provider Chiropractor
DX: M51.16 Intervertebral disc disorders with radiculopathy, lumbar region (principal); M99.03 Segmental and somatic dysfunction of lumbar region; Z94.0 Kidney transplant status
CPT/HCPCS: 72100; 72170

== ENCOUNTER → 2020-04-10 09:16 | Outpatient (CLI) | payer MEDICARE, MEDICAID, SELFPAY ==
[2020-04-10 09:56] LABS: Bacteria Urine None Seen; WBC Urine None Seen (0-5/HPF)
[2020-04-10 10:30] LABS: Add Manual Diff / Slide Review NO; Basophils Absolute Auto 0 /uL (0-100); Basophils Percent Auto 0.2 % (0-2); Eosinophils Absolute Auto 100 /uL (0-450); Eosinophils Percent Auto 1.1 % (2-4); Hematocrit 46.4 % (41-53); Hemoglobin 15.6 g/dL (13.5-17.5); Lymphocytes Absolute Auto 600 /uL (1100-4500); Lymphocytes Percent Auto 9.2 % (25-40); Mean Corpuscular HGB Conc 33.5 % (30-36); Mean Corpuscular Hemoglobin 28.3 PG (26-34); Mean Corpuscular Volume 84.2 fL (80-100); Monocytes Absolute Auto 400 /uL (0-900); Monocytes Percent Auto 6.9 % (3-14); Neutrophils Absolute Auto 5200 /uL (1500-7000); Neutrophils Percent Auto 82.6 % (50-75); Platelet Count 208 X10^3/uL (150-400); Red Blood Cell Count 5.51 X10^6/uL (4.5-5.9); Red Cell Distribution Width 13.1 % (11.6-14.8); White Blood Cell Count 6.2 X10^3/uL (4.5-11.0)
[2020-04-10 10:47] LABS: Appearance Urine UA CLEAR; Bilirubin Urine UA NEGATIVE (NEGATIVE); Color Urine UA YELLOW; Glucose Urine UA NEGATIVE (Negative); Ketones Urine UA NEGATIVE (NEGATIVE); Leukocyte Esterase Urine UA NEGATIVE (NEGATIVE); Nitrite Urine UA NEGATIVE (Negative); Occult Blood Urine UA 3+ (Negative); Protein Urine UA NEGATIVE (Negative); Specific Gravity Urine UA 1.025 (1.000-1.035); Urobilinogen Urine UA 0.2 E.U./dL (0.2); pH Urine UA 5.5 (4.5-8.0)
[2020-04-10 10:56] LABS: Culture Indicated Urine Cult Not Indicated; RBC Urine 5-10/HPF (0-5/HPF); Squamous Epithelial Cell Urine 5-10 /HPF (0-5/HPF)
[2020-04-10 11:16] LABS: Alanine Aminotransferase 27 IU/L (<50); Albumin 4.6 g/dL (3.5-5.0); Albumin Globulin Ratio 1.7 (1.0-2.8); Alkaline Phosphatase 94 U/L (38-126); Aspartate Aminotransferase 23 IU/L (17-59); BUN Creatinine Ratio 16.7 (6-22); Bilirubin Total 0.5 mg/dL (0.2-1.3); Blood Urea Nitrogen 21 mg/dL (9-20); Calcium 9.5 mg/dL (8.4-10.2); Carbon Dioxide 26 mmol/L (22-32); Chloride 103 mmol/L (98-107); Cholesterol 153 mg/dL (140-199); Estimated Glomerular Filt Rate > 60.0 mL/min (>60); Globulin 2.7 g/dL (1.7-4.1); Glucose 102 mg/dL (70-100); HDL Cholesterol 48 mg/dL (40-60); HEMOLYSIS < 15 (0-50); LDL Cholesterol Calculated 72 mg/dL (<100); Phosphorous 3.1 mg/dL (2.5-4.5); Potassium 4.1 mmol/L (3.4-5.1); Sodium 137 mmol/L (137-145); Total Protein 7.3 g/dL (6.3-8.2); Triglycerides 166 mg/dL (35-150)
[2020-04-10 11:21] LABS: Creatinine Urine Random 167.3 mg/dL; Protein (Total) Urine Random 15 mg/dL (0-12); Protein Creatinine Ratio Urine 0.08 GRAM/24H
[2020-04-10 11:32] LABS: Vitamin D 25 Hydroxy (D3) 31.6 ng/mL (30.0-100.0)
[2020-04-10 13:04] LABS: Specimen Label KIT TEST
[2020-04-11 08:12] LABS: Parathyroid Hormone Int 61 pg/mL (15-65)
[2020-04-11 13:32] LABS: Tacrolimus 7.6 ng/mL (2.0-20.0)
== END ==
PROVIDERS: PCP Internal Medicine; Referring Provider Internal Medicine Nephrology; Visit Provider Internal Medicine Nephrology
DX: Z94.0 Kidney transplant status (principal); Z48.298 Encounter for aftercare following other organ transplant; T86.90 Unspecified complication of unspecified transplanted organ and tissue; E83.40 Disorders of magnesium metabolism, unspecified; B34.9 Viral infection, unspecified
CPT/HCPCS: 36415; 80053; 80061; 80180; 80197; 80305; 80307; 81001; 82306; 82570; 83970; 84100; 84156; 85025; 87799

== ENCOUNTER → 2020-05-17 09:41 | Outpatient (CLI) | payer MEDICARE, MEDICAID, SELFPAY ==
[2020-05-17 10:00] LABS: Bacteria Urine None Seen; WBC Urine None Seen (0-5/HPF)
[2020-05-17 10:32] LABS: Appearance Urine UA CLEAR; Bilirubin Urine UA NEGATIVE (NEGATIVE); Color Urine UA YELLOW; Glucose Urine UA NEGATIVE (Negative); Ketones Urine UA NEGATIVE (NEGATIVE); Leukocyte Esterase Urine UA NEGATIVE (NEGATIVE); Nitrite Urine UA NEGATIVE (Negative); Occult Blood Urine UA 2+ (Negative); Protein Urine UA NEGATIVE (Negative); Urobilinogen Urine UA 0.2 E.U./dL (0.2); pH Urine UA 5.5 (4.5-8.0)
[2020-05-17 10:37] LABS: Hematocrit 47.9 % (41-53); Hemoglobin 16.1 g/dL (13.5-17.5); Mean Corpuscular HGB Conc 33.5 % (30-36); Mean Corpuscular Hemoglobin 28.3 PG (26-34); Mean Corpuscular Volume 84.3 fL (80-100); Platelet Count 226 X10^3/uL (150-400); Red Blood Cell Count 5.68 X10^6/uL (4.5-5.9); White Blood Cell Count 6.4 X10^3/uL (4.5-11.0)
[2020-05-17 10:42] LABS: Amorphous Sediment Urine 1+; RBC Urine 0-1/HPF (0-5/HPF)
[2020-05-17 10:43] LABS: Culture Indicated Urine Cult Not Indicated
[2020-05-17 11:01] LABS: Alanine Aminotransferase 28 IU/L (<50); Albumin 4.6 g/dL (3.5-5.0); Albumin Globulin Ratio 1.6 (1.0-2.8); Alkaline Phosphatase 101 U/L (38-126); Aspartate Aminotransferase 22 IU/L (17-59); Bilirubin Total 0.7 mg/dL (0.2-1.3); Blood Urea Nitrogen 23 mg/dL (9-20); Calcium 9.8 mg/dL (8.4-10.2); Carbon Dioxide 31 mmol/L (22-32); Chloride 101 mmol/L (98-107); Estimated Glomerular Filt Rate > 60.0 mL/min (>60); Globulin 2.9 g/dL (1.7-4.1); Glucose 105 mg/dL (70-100); HEMOLYSIS < 15 (0-50); Magnesium 1.9 mg/dL (1.6-2.3); Potassium 4.3 mmol/L (3.4-5.1); Sodium 135 mmol/L (137-145); Total Protein 7.5 g/dL (6.3-8.2)
[2020-05-17 11:03] LABS: Creatinine Urine Random 143.5 mg/dL; Protein (Total) Urine Random 15 mg/dL (0-12)
[2020-05-18 07:09] LABS: Parathyroid Hormone Int 65 pg/mL (15-65)
[2020-05-18 10:58] LABS: Tacrolimus 5.4 ng/mL (2.0-20.0)
[2020-05-22 12:44] LABS: BK Virus, DNA, QN, PCR Negative copies/mL (Negative)
== END ==
PROVIDERS: PCP Internal Medicine; Referring Provider Student in an Organized Health Care Education/Training Program; Visit Provider Student in an Organized Health Care Education/Training Program
DX: N30.00 Acute cystitis without hematuria (principal); R80.9 Proteinuria, unspecified; N25.81 Secondary hyperparathyroidism of renal origin; B34.9 Viral infection, unspecified; D70.9 Neutropenia, unspecified; D63.1 Anemia in chronic kidney disease; N05.9 Unspecified nephritic syndrome with unspecified morphologic changes; T86.10 Unspecified complication of kidney transplant; E83.40 Disorders of magnesium metabolism, unspecified
CPT/HCPCS: 36415; 80053; 80197; 81001; 82570; 83735; 83970; 84156; 85027; 87799

== ENCOUNTER → 2020-09-27 09:47 | Outpatient (CLI) | payer MEDICARE, SELFPAY ==
[2020-09-27 10:59] LABS: Appearance Urine UA CLEAR; Bilirubin Urine UA NEGATIVE (NEGATIVE); Color Urine UA YELLOW; Glucose Urine UA NEGATIVE (Negative); Ketones Urine UA NEGATIVE (NEGATIVE); Leukocyte Esterase Urine UA NEGATIVE (NEGATIVE); Nitrite Urine UA NEGATIVE (Negative); Occult Blood Urine UA 3+ (Negative); Protein Urine UA TRACE (Negative); Specific Gravity Urine UA >=1.030 (1.000-1.035); Urobilinogen Urine UA 0.2 E.U./dL (0.2); pH Urine UA 5.5 (4.5-8.0)
[2020-09-27 11:03] LABS: Add Manual Diff / Slide Review NO; Basophils Absolute Auto 0 /uL (0-100); Basophils Percent Auto 0.3 % (0-2); Eosinophils Absolute Auto 100 /uL (0-450); Eosinophils Percent Auto 1.1 % (2-4); Hematocrit 47.4 % (41-53); Hemoglobin 16.1 g/dL (13.5-17.5); Lymphocytes Absolute Auto 700 /uL (1100-4500); Lymphocytes Percent Auto 9.7 % (25-40); Mean Corpuscular Hemoglobin 28.5 PG (26-34); Mean Corpuscular Volume 83.8 fL (80-100); Monocytes Absolute Auto 500 /uL (0-900); Monocytes Percent Auto 6.6 % (3-14); Neutrophils Absolute Auto 5900 /uL (1500-7000); Neutrophils Percent Auto 82.3 % (50-75); Platelet Count 224 X10^3/uL (150-400); Red Blood Cell Count 5.65 X10^6/uL (4.5-5.9); Red Cell Distribution Width 13.3 % (11.6-14.8); White Blood Cell Count 7.2 X10^3/uL (4.5-11.0)
[2020-09-27 11:45] LABS: Bacteria Urine Few (2-10); Culture Indicated Urine Cult Not Indicated; RBC Urine 1-5/HPF (0-5/HPF); WBC Urine 0-1/HPF (0-5/HPF)
[2020-09-27 11:52] LABS: Alanine Aminotransferase 22 IU/L (<50); Albumin 4.6 g/dL (3.5-5.0); Albumin Globulin Ratio 1.8 (1.0-2.8); Alkaline Phosphatase 103 U/L (38-126); Aspartate Aminotransferase 20 IU/L (17-59); BUN Creatinine Ratio 13.9 (6-22); Bilirubin Total 0.4 mg/dL (0.2-1.3); Blood Urea Nitrogen 17 mg/dL (9-20); Carbon Dioxide 26 mmol/L (22-32); Chloride 101 mmol/L (98-107); Estimated Glomerular Filt Rate > 60.0 mL/min (>60); Globulin 2.6 g/dL (1.7-4.1); Glucose 99 mg/dL (70-100); HEMOLYSIS < 15 (0-50); Magnesium 1.6 mg/dL (1.6-2.3); Potassium 4.3 mmol/L (3.4-5.1); Sodium 138 mmol/L (137-145); Total Protein 7.2 g/dL (6.3-8.2)
[2020-09-27 11:53] LABS: Creatinine Urine Random 211.5 mg/dL; Protein (Total) Urine Random 17 mg/dL (0-12); Protein Creatinine Ratio Urine 0.08 GRAM/24H
[2020-09-28 08:08] LABS: Parathyroid Hormone Int 62 pg/mL (15-65)
[2020-09-28 12:08] LABS: Tacrolimus 5.2 ng/mL (2.0-20.0)
== END ==
PROVIDERS: PCP Internal Medicine; Referring Provider Student in an Organized Health Care Education/Training Program; Visit Provider Student in an Organized Health Care Education/Training Program
DX: D70.9 Neutropenia, unspecified (principal); N25.81 Secondary hyperparathyroidism of renal origin; D63.1 Anemia in chronic kidney disease; T86.10 Unspecified complication of kidney transplant; E83.40 Disorders of magnesium metabolism, unspecified; N30.00 Acute cystitis without hematuria; R80.9 Proteinuria, unspecified
CPT/HCPCS: 36415; 80053; 80197; 81001; 82570; 83735; 83970; 84156; 85025

== ENCOUNTER → 2021-02-04 08:13 | Outpatient (CLI) | payer MEDICARE, SELFPAY ==
[2021-02-04 08:28] LABS: Bacteria Urine None Seen; WBC Urine None Seen (0-5/HPF)
[2021-02-04 08:58] LABS: Add Manual Diff / Slide Review NO; Basophils Absolute Auto 0 /uL (0-100); Basophils Percent Auto 0.3 % (0-2); Eosinophils Absolute Auto 100 /uL (0-450); Eosinophils Percent Auto 1.1 % (2-4); Hematocrit 46.4 % (41-53); Hemoglobin 15.6 g/dL (13.5-17.5); Lymphocytes Absolute Auto 700 /uL (1100-4500); Mean Corpuscular HGB Conc 33.5 % (30-36); Mean Corpuscular Hemoglobin 28.2 PG (26-34); Mean Corpuscular Volume 84.3 fL (80-100); Monocytes Absolute Auto 400 /uL (0-900); Monocytes Percent Auto 6.7 % (3-14); Neutrophils Absolute Auto 5400 /uL (1500-7000); Neutrophils Percent Auto 81.9 % (50-75); Platelet Count 210 X10^3/uL (150-400); Red Blood Cell Count 5.51 X10^6/uL (4.5-5.9); Red Cell Distribution Width 13.1 % (11.6-14.8); White Blood Cell Count 6.6 X10^3/uL (4.5-11.0)
[2021-02-04 09:14] LABS: BUN Creatinine Ratio 17.6 (6-22); Blood Urea Nitrogen 19 mg/dL (9-20); Calcium 9.4 mg/dL (8.4-10.2); Carbon Dioxide 28 mmol/L (22-32); Chloride 102 mmol/L (98-107); Estimated Glomerular Filt Rate > 60.0 mL/min (>60); Glucose 109 mg/dL (70-100); HEMOLYSIS < 15 (0-50); Magnesium 1.6 mg/dL (1.6-2.3); Potassium 4.2 mmol/L (3.4-5.1); Sodium 137 mmol/L (137-145)
[2021-02-04 09:30] LABS: Appearance Urine UA CLEAR; Bilirubin Urine UA NEGATIVE (NEGATIVE); Color Urine UA YELLOW; Glucose Urine UA NEGATIVE (Negative); Ketones Urine UA NEGATIVE (NEGATIVE); Leukocyte Esterase Urine UA NEGATIVE (NEGATIVE); Nitrite Urine UA NEGATIVE (Negative); Occult Blood Urine UA 3+ (Negative); Protein Urine UA 1+ (Negative); Urobilinogen Urine UA 0.2 E.U./dL (0.2); pH Urine UA 5.5 (4.5-8.0)
[2021-02-04 09:33] LABS: Culture Indicated Urine Cult Not Indicated; RBC Urine 1-5/HPF (0-5/HPF); Squamous Epithelial Cell Urine 1-5 /HPF (0-5/HPF)
[2021-02-04 09:35] LABS: Creatinine Urine Random 132.2 mg/dL; Protein (Total) Urine Random 42 mg/dL (0-12); Protein Creatinine Ratio Urine 0.31 GRAM/24H
[2021-02-05 06:27] LABS: Parathyroid Hormone Int 87 pg/mL (15-65)
[2021-02-05 09:36] LABS: Tacrolimus 4.7 ng/mL (2.0-20.0)
== END ==
PROVIDERS: PCP Internal Medicine; Referring Provider Student in an Organized Health Care Education/Training Program; Visit Provider Student in an Organized Health Care Education/Training Program
DX: N05.9 Unspecified nephritic syndrome with unspecified morphologic changes (principal); D70.9 Neutropenia, unspecified; N25.81 Secondary hyperparathyroidism of renal origin; D63.1 Anemia in chronic kidney disease; T86.10 Unspecified complication of kidney transplant; E83.40 Disorders of magnesium metabolism, unspecified; N30.00 Acute cystitis without hematuria; R80.9 Proteinuria, unspecified
CPT/HCPCS: 36415; 80048; 80197; 81001; 82570; 83735; 83970; 84156; 85025

== ENCOUNTER → 2021-02-10 09:31 | Outpatient (CLI) | payer MEDICARE, SELFPAY ==
[2021-02-11 09:56] LABS: Tacrolimus 5.4 ng/mL (2.0-20.0)
== END ==
PROVIDERS: PCP Internal Medicine; Referring Provider Student in an Organized Health Care Education/Training Program; Visit Provider Student in an Organized Health Care Education/Training Program
DX: T86.10 Unspecified complication of kidney transplant (principal)
CPT/HCPCS: 36415; 80197

== ENCOUNTER → 2021-08-11 09:54 | Outpatient (CLI) | payer BC, SELFPAY ==
[2021-08-11 11:04] LABS: Add Manual Diff / Slide Review NO; Basophils Absolute Auto 0 /uL (0-100); Basophils Percent Auto 0.4 % (0-2); Eosinophils Absolute Auto 100 /uL (0-450); Hematocrit 47.7 % (41-53); Hemoglobin 16.2 g/dL (13.5-17.5); Lymphocytes Absolute Auto 700 /uL (1100-4500); Lymphocytes Percent Auto 9.6 % (25-40); Mean Corpuscular Volume 82.4 fL (80-100); Monocytes Absolute Auto 600 /uL (0-900); Monocytes Percent Auto 7.9 % (3-14); Neutrophils Absolute Auto 6000 /uL (1500-7000); Neutrophils Percent Auto 81.1 % (50-75); Platelet Count 215 X10^3/uL (150-400); Red Blood Cell Count 5.79 X10^6/uL (4.5-5.9); White Blood Cell Count 7.4 X10^3/uL (4.5-11.0)
[2021-08-11 11:14] LABS: Hemoglobin A1C% w Est Avg Glu 5.5 % (4.0-6.0)
[2021-08-11 11:17] LABS: Appearance Urine UA CLEAR; Bilirubin Urine UA NEGATIVE (NEGATIVE); Color Urine UA YELLOW; Glucose Urine UA NEGATIVE (Negative); Ketones Urine UA NEGATIVE (NEGATIVE); Leukocyte Esterase Urine UA NEGATIVE (NEGATIVE); Nitrite Urine UA NEGATIVE (Negative); Occult Blood Urine UA 3+ (Negative); Protein Urine UA 1+ (Negative); Specific Gravity Urine UA 1.025 (1.000-1.035); Urobilinogen Urine UA 0.2 E.U./dL (0.2)
[2021-08-11 11:21] LABS: Alanine Aminotransferase 43 IU/L (<50); Albumin 4.9 g/dL (3.5-5.0); Albumin Globulin Ratio 1.6 (1.0-2.8); Alkaline Phosphatase 105 U/L (38-126); Aspartate Aminotransferase 30 IU/L (17-59); BUN Creatinine Ratio 17.3 (6-22); Bilirubin Total 0.8 mg/dL (0.2-1.3); Blood Urea Nitrogen 19 mg/dL (9-20); Calcium 9.4 mg/dL (8.4-10.2); Carbon Dioxide 26 mmol/L (22-32); Chloride 102 mmol/L (98-107); Cholesterol 167 mg/dL (140-199); Estimated Glomerular Filt Rate > 60.0 mL/min (>60); Glucose 104 mg/dL (70-100); HDL Cholesterol 43 mg/dL (40-60); HEMOLYSIS < 15 (0-50); LDL Cholesterol Calculated 81 mg/dL (<100); Phosphorous 2.9 mg/dL (2.5-4.5); Potassium 3.9 mmol/L (3.4-5.1); Sodium 134 mmol/L (137-145); Total Protein 7.9 g/dL (6.3-8.2); Triglycerides 213 mg/dL (35-150)
[2021-08-11 11:53] LABS: Bacteria Urine Few (2-10); Culture Indicated Urine Cult Not Indicated; RBC Urine 1-5/HPF (0-5/HPF); WBC Urine 0-1/HPF (0-5/HPF)
[2021-08-11 14:16] LABS: Creatinine Urine Random 186.3 mg/dL; Protein (Total) Urine Random 43 mg/dL (0-12); Protein Creatinine Ratio Urine 0.23 GRAM/24H
[2021-08-11 14:35] LABS: Vitamin D 25 Hydroxy (D3) 25.9 ng/mL (30.0-100.0)
[2021-08-12 07:36] LABS: Parathyroid Hormone Int 80 pg/mL (15-65)
[2021-08-12 09:09] LABS: Tacrolimus 4.5 ng/mL (2.0-20.0)
[2021-08-13 16:27] LABS: Magnesium 1.8 mg/dL (1.6-2.3)
[2021-08-19 19:21] LABS: Mycophenolic Acid 1.2 ug/mL (1.0-3.5); Mycophenolic Acid Glucuronide 12 ug/mL (15-125)
[2021-08-26 12:59] LABS: BK Virus, DNA, QN, PCR Negative
== END ==
PROVIDERS: Referring Provider Internal Medicine Nephrology; Visit Provider Internal Medicine Nephrology
DX: Z94.0 Kidney transplant status (principal); Z48.298 Encounter for aftercare following other organ transplant; E83.40 Disorders of magnesium metabolism, unspecified; T86.90 Unspecified complication of unspecified transplanted organ and tissue; B34.9 Viral infection, unspecified
CPT/HCPCS: 36415; 80053; 80061; 80180; 80197; 81001; 82306; 82570; 83036; 83735; 83970; 84100; 84156; 85025; 87799

== ENCOUNTER → 2021-12-01 10:08 | Outpatient (CLI) | payer BC, SELFPAY ==
[2021-12-01 10:58] LABS: Add Manual Diff / Slide Review NO; Basophils Absolute Auto 0 /uL (0-100); Basophils Percent Auto 0.4 % (0-2); Eosinophils Absolute Auto 100 /uL (0-450); Eosinophils Percent Auto 1.7 % (2-4); Hematocrit 44.6 % (41-53); Hemoglobin 15.3 g/dL (13.5-17.5); Lymphocytes Absolute Auto 700 /uL (1100-4500); Lymphocytes Percent Auto 10.8 % (25-40); Mean Corpuscular HGB Conc 34.4 % (30-36); Mean Corpuscular Hemoglobin 28.2 PG (26-34); Mean Corpuscular Volume 81.9 fL (80-100); Monocytes Absolute Auto 500 /uL (0-900); Monocytes Percent Auto 8.1 % (3-14); Neutrophils Absolute Auto 4900 /uL (1500-7000); Platelet Count 214 X10^3/uL (150-400); Red Blood Cell Count 5.44 X10^6/uL (4.5-5.9); Red Cell Distribution Width 13.2 % (11.6-14.8); White Blood Cell Count 6.2 X10^3/uL (4.5-11.0)
[2021-12-01 11:24] LABS: Appearance Urine UA CLEAR; Bilirubin Urine UA NEGATIVE (NEGATIVE); Color Urine UA YELLOW; Glucose Urine UA NEGATIVE (Negative); Ketones Urine UA NEGATIVE (NEGATIVE); Leukocyte Esterase Urine UA TRACE (NEGATIVE); Nitrite Urine UA NEGATIVE (Negative); Occult Blood Urine UA 2+ (Negative); Protein Urine UA 1+ (Negative); Specific Gravity Urine UA 1.015 (1.000-1.035); Urobilinogen Urine UA 0.2 E.U./dL (0.2); pH Urine UA 6.5 (4.5-8.0)
[2021-12-01 11:36] LABS: Bacteria Urine None Seen; Culture Indicated Urine Cult Not Indicated; RBC Urine 0-1/HPF (0-5/HPF); Squamous Epithelial Cell Urine 0-1 /HPF (0-5/HPF); WBC Urine 0-1/HPF (0-5/HPF)
[2021-12-01 11:53] LABS: Alanine Aminotransferase 46 IU/L (<50); Albumin 4.8 g/dL (3.5-5.0); Albumin Globulin Ratio 2.1 (1.0-2.8); Alkaline Phosphatase 105 U/L (38-126); Aspartate Aminotransferase 29 IU/L (17-59); BUN Creatinine Ratio 16.4 (6-22); Bilirubin Total 0.9 mg/dL (0.2-1.3); Blood Urea Nitrogen 18 mg/dL (9-20); Calcium 9.4 mg/dL (8.4-10.2); Carbon Dioxide 24 mmol/L (22-32); Chloride 100 mmol/L (98-107); Estimated Glomerular Filt Rate > 60 mL/min (>60); Globulin 2.3 g/dL (1.7-4.1); Glucose 112 mg/dL (70-100); HEMOLYSIS < 15 (0-50); Magnesium 1.5 mg/dL (1.6-2.3); Potassium 4.1 mmol/L (3.4-5.1); Sodium 136 mmol/L (137-145); Total Protein 7.1 g/dL (6.3-8.2)
[2021-12-01 12:00] LABS: Creatinine Urine Random 111.9 mg/dL; Protein (Total) Urine Random 48 mg/dL (0-12); Protein Creatinine Ratio Urine 0.42 GRAM/24H
[2021-12-02 07:38] LABS: Parathyroid Hormone Int 75 pg/mL (15-65)
[2021-12-02 09:39] LABS: Tacrolimus 4.7 ng/mL (2.0-20.0)
== END ==
PROVIDERS: Internal Medicine Nephrology; Referring Provider Student in an Organized Health Care Education/Training Program; Visit Provider Student in an Organized Health Care Education/Training Program
DX: D70.9 Neutropenia, unspecified (principal); D63.1 Anemia in chronic kidney disease; N05.9 Unspecified nephritic syndrome with unspecified morphologic changes; T86.10 Unspecified complication of kidney transplant; E83.40 Disorders of magnesium metabolism, unspecified; N25.81 Secondary hyperparathyroidism of renal origin; N30.00 Acute cystitis without hematuria; R80.9 Proteinuria, unspecified
CPT/HCPCS: 36415; 80053; 80197; 81001; 82570; 83735; 83970; 84156; 85025

== ENCOUNTER → 2021-12-29 09:02 | Outpatient (CLI) | payer SELFPAY ==
[2021-12-30 08:09] LABS: Tacrolimus 6.6 ng/mL (2.0-20.0)
== END ==
PROVIDERS: Referring Provider Student in an Organized Health Care Education/Training Program; Visit Provider Student in an Organized Health Care Education/Training Program
DX: T86.10 Unspecified complication of kidney transplant (principal)
CPT/HCPCS: 36415; 80197

== ENCOUNTER 2022-02-25 10:41 | Emergency (ER) | payer BC, SELFPAY ==
[2022-02-25 11:02] VITALS: BP 138/76; PULSE 69; RESP 18; TEMP 36.6; O2SAT 97; BMI 37.3
[2022-02-25 13:50] VITALS: BP 141/89; PULSE 70; RESP 18; O2SAT 97
--- NOTE | 2022-02-25 14:16 | ED_ITS ---
HPI - GI Bleed <Jenifer Ortiz [facility] - Last Filed: 02/25/22 14:53> General Chief complaint: GI Bleed Stated complaint: blood in stool Time Seen by Provider: 02/25/22 13:50 Source: patient Mode of arrival: Family Vehicle History of Present Illness HPI Narrative: This is a 36-year-old male presents to the emergency department complaining of 2 days with bright red blood in his stool and he noticed this worsening over the last 2 bowel movements in a Mt both in the toilet and after he wiped. Patient has a history of single kidney status post transplant and bilateral nephrectomies, cholecystectomy, is no longer on dialysis, takes tacrolimus for immunosuppression, is no longer on prednisone. He denies any recent fever, vomiting, significant constipation or abdominal pain. He states that he has been feeling well overall without any recent illness, states that he is working in a stressful job without good management and this has been difficult for him recently. He denies any sore throat, cough, chills, diarrhea, recent travel, states that today he had more blood in his stool than yesterday and it was b right red, denies any rectal pain, urinary changes, urinary retention, dribbling, penile drainage, constipation, lower abdominal pain or hemorrhoids. Related Data Home Medications Medication Instructions Recorded Confirmed amlodipine 10 mg tablet 10 mg PO DAILY 12/19/18 12/19/18 aspirin 81 mg tablet,delayed 81 mg PO DAILY 12/19/18 12/19/18 release (Aspir-) carvedilol 25 mg tablet 25 mg PO BID 12/19/18 12/19/18 cholecalciferol (vitamin D3) 25 1,000 unit PO DAILY 12/19/18 12/19/18 mcg (1,000 unit) capsule (Vitamin D3) lisinopril 5 mg tablet 5 mg PO DAILY 12/19/18 12/19/18 magnesium oxide 400 mg PO TID 12/19/18 12/19/18 [id number]-Rp-jysw-minerals 1 tab PO DAILY 12/19/18 12/19/18 (Multiple Vitamin, Womens tablet) mycophenolate sodium 360 mg 360 mg PO QAM 12/19/18 12/19/18 tablet,delayed release (Myfortic) prednisone 5 mg tablet 5 mg PO DAILY 12/19/18 12/19/18 sertraline 100 mg tablet 50 mg PO DAILY 12/19/18 12/19/18 spironolactone 25 mg tablet 25 mg PO DAILY 12/19/18 12/19/18 tacrolimus 1 mg capsule, 4 mg PO Q12H 12/19/18 12/19/18 immediate-release Previous Rx's Medication Instructions Recorded amoxicillin 875 mg-potassium 1 tab PO BID Worsening bleeding 7 02/25/22 clavulanate 125 mg tablet days #14 tabs hydrocortisone acetate 25 mg 25 mg WA BEDTIME PRN hemorrhoids 02/25/22 rectal suppository #12 ea hydroxyzine pamoate 25 mg capsule 25 mg PO BID PRN stress/anxiety 02/25/22 #20 caps Allergies Allergy/AdvReac Type Severity Reaction Status Date / Time No Known Drug Allergies Allergy Verified 02/25/22 11:05 Review of Systems <SOBEIDA Castelan - Last Filed: 02/25/22 14:53> Review of Systems Narrative: Review of systems is negative for acute abnormalities unless otherwise noted in HPI Patient History <SOBEIDA Castelan - Last Filed: 02/25/22 14:53> Medical History Renal failure Surgical History Renal transplant recipient Social History Smoking Status: Never smoker Smoking Status: Never smoker alcohol intake frequency: holidays/special occasions only Substance Use Type: does not use Exam <SOBEIDA Castelan - Last Filed: 02/25/22 14:53> Narrative Exam Narrative: Reviewed vitals signs and nursing notes. General: cooperative, comfortable, in no acute distress, well groomed, afebrile HEENT: symmetrical facial expressions, moist mucous membranes Cardiovascular: regular rate and rhythm, no peripheral edema, warm extremities Respiratory: normal effort, able to speak in complete sentences, without wheezing, stridor, or abnormal breath sounds. No retractions or tachypnea. GI: abdomen soft, scar from his renal transplant in 2018 below his umbilicus without any surrounding erythema, tenderness, nontender to palpation, nondistended, without masses, rebound tenderness or exquisite tenderness with exam. MSK: moves all extremities, neurovascularly intact, no weakness, normal tone Skin: brisk capillary refill, without pallor or erythema Neuro: normal speech and cognition, A&O x3, ambulatory, clear speech Psych: mental status is grossly normal, congruent mood, normal affect, pleasant and cooperative Initial Vital Signs Initial Vital Signs: Vital Signs Temperature 97.8 F 02/25/22 11:02 Pulse Rate 69 02/25/22 11:02 Respiratory Rate 18 02/25/22 11:02 Blood Pressure 138/76 02/25/22 11:02 Pulse Oximetry 97 02/25/22 11:02 Oxygen Delivery Method 02/25/22 11:02 <DO Dorota Wiggins Last Filed: 02/26/22 08:03> Initial Vital Signs Initial Vital Signs: Vital Signs Temperature 97.8 F 02/25/22 11:02 Pulse Rate 69 02/25/22 11:02 Respiratory Rate 18 02/25/22 11:02 Blood Pressure 138/76 02/25/22 11:02 Pulse Oximetry 97 02/25/22 11:02 Oxygen Delivery Method 02/25/22 11:02 Course <Jenifer Ortiz [facility] - Last Filed: 02/25/22 14:53> Orders Ordered: ED Orders 02/25/22 14:20 CBC Auto Diff [Complete Blood Count AUTO DIFF] Stat CMP [Comprehensive Metabolic Panel] Stat Prothrombin Time INR Stat Urine Culture Stat Urine Microscopic Stat Vital Signs Vital signs: Vital Signs - 8 hr 02/25/22 11:02 02/25/22 13:50 Temperature 97.8 F Pulse Rate 69 70 Respiratory Rate 18 18 Blood Pressure 138/76 141/89 H Pulse Oximetry 97 97 Oxygen Delivery Method Room Air Room Air <DO Dorota Wiggins Last Filed: 02/26/22 08:03> Orders Ordered: ED Orders 02/25/22 14:20 CBC Auto Diff [Complete Blood Count AUTO DIFF] Stat CMP [Comprehensive Metabolic Panel] Stat Prothrombin Time INR Stat Urine Culture Stat Urine Microscopic Stat Vital Signs Vital signs: Vital Signs - 8 hr 02/25/22 11:02 02/25/22 13:50 Temperature 97.8 F Pulse Rate 69 70 Respiratory Rate 18 18 Blood Pressure 138/76 141/89 H Pulse Oximetry 97 97 Oxygen Delivery Method Room Air Room Air [facility] - GI Bleed <Jenifer Kash Diana, [facility] - Last Filed: 02/25/22 14:53> Lab Data Result diagrams: 02/25/22 14:20 02/25/22 14:20 Labs: Lab Results 02/25/22 02/25/22 02/25/22 Range/Units 14:20 14:20 14:20 WBC 8.7 (4.5-11.0) X10^3/uL RBC 5.62 (4.5-5.9) X10^6/uL Hgb 16.3 (13.5-17.5) g/dL Hct 46.8 (41-53) % MCV 83.3 (80-100) fL MCH 29.0 (26-34) PG MCHC 34.8 (30-36) % RDW 13.1 (11.6-14.8) % Plt Count 215 (150-400) X10^3/uL Neut % (Auto) 84.3 H (50-75) % Lymph % (Auto) 8.6 L (25-40) % [place] % (Auto) 6.4 (3-14) % Eos % (Auto) 0.5 L (2-4) % Baso % (Auto) 0.2 (0-2) % Neut # (Auto) 7300 H (8093-0302) /uL Lymph # (Auto) 700 L (6389-7216) /uL [place] # (Auto) 600 (0-900) /uL Eos # (Auto) 0 (0-450) /uL Baso # (Auto) 0 (0-100) /uL PT 12.7 (10.1-12.7) SECONDS INR 1.1 (0.9-1.3) Sodium 139 (137-145) mmol/L Potassium 4.4 (3.4-5.1) mmol/L Chloride 100 (98-107) mmol/L Carbon Dioxide 26 (22-32) mmol/L BUN 20 (9-20) mg/dL Creatinine 1.16 (0.66-1.25) mg/dL Estimated GFR > 60 (>60) mL/min BUN/Creatinine Ratio 17.2 (6-22) Glucose 102 H (70-100) mg/dL Calcium 9.5 (8.4-10.2) mg/dL Total Bilirubin 0.7 (0.2-1.3) mg/dL AST 33 (17-59) IU/L ALT 51 H (<50) IU/L Alkaline Phosphatase 123 (38-126) U/L Total Protein 8.0 (6.3-8.2) g/dL Albumin 4.8 (3.5-5.0) g/dL Globulin 3.2 (1.7-4.1) g/dL Albumin/Globulin Ratio 1.5 (1.0-2.8) Urine RBC (0-5/HPF) Urine WBC (0-5/HPF) Ur Squamous Epith Cells (0-5/HPF) Urine Bacteria (None) Ur Culture Indicated? 02/25/22 Range/Units 14:20 WBC (4.5-11.0) X10^3/uL RBC (4.5-5.9) X10^6/uL Hgb (13.5-17.5) g/dL Hct (41-53) % MCV (80-100) fL MCH (26-34) PG MCHC (30-36) % RDW (11.6-14.8) % Plt Count (150-400) X10^3/uL Neut % (Auto) (50-75) % Lymph % (Auto) (25-40) % [place] % (Auto) (3-14) % Eos % (Auto) (2-4) % Baso % (Auto) (0-2) % Neut # (Auto) (1973-0661) /uL Lymph # (Auto) (7764-4937) /uL [place] # (Auto) (0-900) /uL Eos # (Auto) (0-450) /uL Baso # (Auto) (0-100) /uL PT (10.1-12.7) SECONDS INR (0.9-1.3) Sodium (137-145) mmol/L Potassium (3.4-5.1) mmol/L Chloride (98-107) mmol/L Carbon Dioxide (22-32) mmol/L BUN (9-20) mg/dL Creatinine (0.66-1.25) mg/dL Estimated GFR (>60) mL/min BUN/Creatinine Ratio (6-22) Glucose (70-100) mg/dL Calcium (8.4-10.2) mg/dL Total Bilirubin (0.2-1.3) mg/dL AST (17-59) IU/L ALT (<50) IU/L Alkaline Phosphatase (38-126) U/L Total Protein (6.3-8.2) g/dL Albumin (3.5-5.0) g/dL Globulin (1.7-4.1) g/dL Albumin/Globulin Ratio (1.0-2.8) Urine RBC None seen (0-5/HPF) Urine WBC None seen (0-5/HPF) Ur Squamous Epith Cells 0-1 /hpf (0-5/HPF) Urine Bacteria None seen (None) Ur Culture Indicated? Cult not indicated Urine Dip Bedside Urine Glucose Negative Bedside Urine Bilirubin - Negative Bedside Urine Ketone - Negative Urine Specific Potter 1.025 Bedside Urine Occult Blood + Bedside Urine pH 6.0 Bedside Urine Protein +/- 15 Bedside Urine Urobilinogen - Negative Bedside Urine Nitrite - Negative Bedside Urine Leukocytes - Negative Esterase MDM Narrative Medical decision making narrative: This is a 36-year-old male who is status post a single kidney transplant and bilateral nephrectomy in 2018 at [facility] and he presents to the emergency department complaining of bright red blood in his stool without any pain or other symptom very for the last 2 days. States that he has been under stress at work, denies any history of this but is chronically immunosuppressed and came in for evaluation because his mom recommended it. Patient denies any recent fever, chills, feeling poorly, nausea vomiting, rectal pain, constipation, was nontender on exam, and without any overt symptoms of blood loss or infection. His lab work is overall reassuring, no leukocytosis, anemia, his creatinine is stable at 1.16 without any significant elevation in liver enzymes. His UA microscopy does not show any RBCs, WBCs, or bacteria. Recommend patient follow-up with [facility] for a colonoscopy if his bleeding is persistent and he was prescribed Augmentin if his bleeding persists and he becomes ill. We talked at length about coming in for a GI panel if his bleeding is ongoing prior to starting the antibiotic. Patient declined a prostate exam today but denies any symptoms of urinary retention, pain, ab normality or receptive anal intercourse. Patient is a good historian, understands to follow-up if he has any worsening. <Randi Paul, DO - Last Filed: 02/26/22 08:03> Lab Data Labs: Lab Results 02/25/22 02/25/22 02/25/22 Range/Units 14:20 14:20 14:20 WBC 8.7 (4.5-11.0) X10^3/uL RBC 5.62 (4.5-5.9) X10^6/uL Hgb 16.3 (13.5-17.5) g/dL Hct 46.8 (41-53) % MCV 83.3 (80-100) fL MCH 29.0 (26-34) PG MCHC 34.8 (30-36) % RDW 13.1 (11.6-14.8) % Plt Count 215 (150-400) X10^3/uL Neut % (Auto) 84.3 H (50-75) % Lymph % (Auto) 8.6 L (25-40) % [place] % (Auto) 6.4 (3-14) % Eos % (Auto) 0.5 L (2-4) % Baso % (Auto) 0.2 (0-2) % Neut # (Auto) 7300 H (2137-8637) /uL Lymph # (Auto) 700 L (4406-9867) /uL [place] # (Auto) 600 (0-900) /uL Eos # (Auto) 0 (0-450) /uL Baso # (Auto) 0 (0-100) /uL PT 12.7 (10.1-12.7) SECONDS INR 1.1 (0.9-1.3) Sodium 139 (137-145) mmol/L Potassium 4.4 (3.4-5.1) mmol/L Chloride 100 (98-107) mmol/L Carbon Dioxide 26 (22-32) mmol/L BUN 20 (9-20) mg/dL Creatinine 1.16 (0.66-1.25) mg/dL Estimated GFR > 60 (>60) mL/min BUN/Creatinine Ratio 17.2 (6-22) Glucose 102 H (70-100) mg/dL Calcium 9.5 (8.4-10.2) mg/dL Total Bilirubin 0.7 (0.2-1.3) mg/dL AST 33 (17-59) IU/L ALT 51 H (<50) IU/L Alkaline Phosphatase 123 (38-126) U/L Total Protein 8.0 (6.3-8.2) g/dL Albumin 4.8 (3.5-5.0) g/dL Globulin 3.2 (1.7-4.1) g/dL Albumin/Globulin Ratio 1.5 (1.0-2.8) Urine RBC (0-5/HPF) Urine WBC (0-5/HPF) Ur Squamous Epith Cells (0-5/HPF) Urine Bacteria (None) Ur Culture Indicated? 02/25/22 Range/Units 14:20 WBC (4.5-11.0) X10^3/uL RBC (4.5-5.9) X10^6/uL Hgb (13.5-17.5) g/dL Hct (41-53) % MCV (80-100) fL MCH (26-34) PG MCHC (30-36) % RDW (11.6-14.8) % Plt Count (150-400) X10^3/uL Neut % (Auto) (50-75) % Lymph % (Auto) (25-40) % [place] % (Auto) (3-14) % Eos % (Auto) (2-4) % Baso % (Auto) (0-2) % Neut # (Auto) (6541-5449) /uL Lymph # (Auto) (8444-9727) /uL [place] # (Auto) (0-900) /uL Eos # (Auto) (0-450) /uL Baso # (Auto) (0-100) /uL PT (10.1-12.7) SECONDS INR (0.9-1.3) Sodium (137-145) mmol/L Potassium (3.4-5.1) mmol/L Chloride (98-107) mmol/L Carbon Dioxide (22-32) mmol/L BUN (9-20) mg/dL Creatinine (0.66-1.25) mg/dL Estimated GFR (>60) mL/min BUN/Creatinine Ratio (6-22) Glucose (70-100) mg/dL Calcium (8.4-10.2) mg/dL Total Bilirubin (0.2-1.3) mg/dL AST (17-59) IU/L ALT (<50) IU/L Alkaline Phosphatase (38-126) U/L Total Protein (6.3-8.2) g/dL Albumin (3.5-5.0) g/dL Globulin (1.7-4.1) g/dL Albumin/Globulin Ratio (1.0-2.8) Urine RBC None seen (0-5/HPF) Urine WBC None seen (0-5/HPF) Ur Squamous Epith Cells 0-1 /hpf (0-5/HPF) Urine Bacteria None seen (None) Ur Culture Indicated? Cult not indicated Urine Dip Bedside Urine Glucose Negative Bedside Urine Bilirubin - Negative Bedside Urine Ketone - Negative Urine Specific Potter 1.025 Bedside Urine Occult Blood + Bedside Urine pH 6.0 Bedside Urine Protein +/- 15 Bedside Urine Urobilinogen - Negative Bedside Urine Nitrite - Negative Bedside Urine Leukocytes - Negative Esterase Discharge Plan Departure Patient Disposition: Home Clinical Impression: BRBPR (bright red blood per rectum) Instructions: Inflammatory Bowel Disease, DI for Colitis Activity Restrictions/Additional Instructions: *You have been diagnosed with blood in your stool which is most likely not dangerous and could be related to IBS and stress. Since you are immunosuppressed it raises questions about dangerous things like infection, or ulceration but it is important to rule out cancer for any persistent bleeding in your stool. Because you have only had this for a couple of days, please pay attention to your symptoms and if you start feeling poorly, please come back for a stool culture and evaluation, start taking this antibiotic if you start feeling ill. Please follow-up with your kidney doctor and other provider and schedule an appointment with [facility] for a colonoscopy as able. Try to reduce stress as best as able with deep breathing exercises, meditation, going for a walk, or other things that make you feel better. *What to do: *Please continue to take your regular medications as directed. [ ] New medication prescriptions sent to your pharmacy: [ ] [ ] New medication written as a paper prescription [ ] No new medications given *Please follow up with your primary care provider in 2-3 days, call for an appointment. Let them know you were seen in the Emergency Department and that we asked that you be seen for follow-up. We will electronically transmit a record of today's note if your PCP is in our system *If you do not have a primary care provider please contact [phone] to establish care with one of the [facility] primary care providers. *Return to Emergency Department if you should have any new, worsening, or concerning symptoms, such as [fever greater than 101F, chills, worsening pain, persistent vomiting or other bothersome symptoms]. Prescriptions: New hydroxyzine pamoate 25 mg capsule 25 mg PO BID PRN (Reason: stress/anxiety) Qty: 20 0RF amoxicillin-pot clavulanate 875-125 mg tablet 1 tab PO BID 7 Days Qty: 14 0RF hydrocortisone acetate 25 mg suppository 25 mg WA BEDTIME PRN (Reason: hemorrhoids) Qty: 12 0RF No Action carvedilol 25 mg tablet 25 mg PO BID sertraline 100 mg tablet 50 mg PO DAILY prednisone 5 mg tablet 5 mg PO DAILY spironolactone 25 mg tablet 25 mg PO DAILY amlodipine 10 mg tablet 10 mg PO DAILY lisinopril 5 mg tablet 5 mg PO DAILY aspirin [Aspir-81] 81 mg Tablet,Delayed Release (Dr/Ec) 81 mg PO DAILY tacrolimus 1 mg Capsule 4 mg PO Q12H cholecalciferol (vitamin D3) [Vitamin D3] 1,000 unit Capsule 1,000 unit PO DAILY Multiple Vitamin, Womens Tablet 1 tab PO DAILY mycophenolate sodium [Myfortic] 360 mg Tablet,Delayed Release (Dr/Ec) 360 mg PO QAM magnesium oxide 400 mg magnesium Capsule 400 mg PO TID Referrals: [facility] [Provider Group] (for colonoscopy) Visit Report Forms: Patient Portal/API <Randi Paul DO - Last Filed: 02/26/22 08:03> Cosign ED Attending Dereje Attestation: I was immediately available in the department for consultation. Documentation has been reviewed. I agree with assessment and plan.
[2022-02-25 14:32] LABS: Add Manual Diff / Slide Review NO; Basophils Absolute Auto 0 /uL (0-100); Basophils Percent Auto 0.2 % (0-2); Eosinophils Absolute Auto 0 /uL (0-450); Eosinophils Percent Auto 0.5 % (2-4); Hematocrit 46.8 % (41-53); Hemoglobin 16.3 g/dL (13.5-17.5); Lymphocytes Absolute Auto 700 /uL (1100-4500); Lymphocytes Percent Auto 8.6 % (25-40); Mean Corpuscular HGB Conc 34.8 % (30-36); Mean Corpuscular Volume 83.3 fL (80-100); Monocytes Absolute Auto 600 /uL (0-900); Monocytes Percent Auto 6.4 % (3-14); Neutrophils Absolute Auto 7300 /uL (1500-7000); Neutrophils Percent Auto 84.3 % (50-75); Platelet Count 215 X10^3/uL (150-400); Red Blood Cell Count 5.62 X10^6/uL (4.5-5.9); Red Cell Distribution Width 13.1 % (11.6-14.8); White Blood Cell Count 8.7 X10^3/uL (4.5-11.0)
[2022-02-25 14:39] LABS: INR 1.1 (0.9-1.3); Prothrombin Time 12.7 SECONDS (10.1-12.7)
[2022-02-25 14:41] LABS: Bacteria Urine None Seen; Culture Indicated Urine Cult Not Indicated; RBC Urine None Seen (0-5/HPF); Squamous Epithelial Cell Urine 0-1 /HPF (0-5/HPF); WBC Urine None Seen (0-5/HPF)
[2022-02-25 14:45] LABS: Alanine Aminotransferase 51 IU/L (<50); Albumin 4.8 g/dL (3.5-5.0); Albumin Globulin Ratio 1.5 (1.0-2.8); Alkaline Phosphatase 123 U/L (38-126); Aspartate Aminotransferase 33 IU/L (17-59); BUN Creatinine Ratio 17.2 (6-22); Bilirubin Total 0.7 mg/dL (0.2-1.3); Blood Urea Nitrogen 20 mg/dL (9-20); Calcium 9.5 mg/dL (8.4-10.2); Carbon Dioxide 26 mmol/L (22-32); Chloride 100 mmol/L (98-107); Estimated Glomerular Filt Rate > 60 mL/min (>60); Globulin 3.2 g/dL (1.7-4.1); Glucose 102 mg/dL (70-100); HEMOLYSIS < 15 (0-50); Potassium 4.4 mmol/L (3.4-5.1); Sodium 139 mmol/L (137-145)
== END 2022-02-25 14:36 | disposition home or self-care (01) ==
PROVIDERS: Emergency Provider Nurse Practitioner Critical Care Medicine
DX: K62.5 Hemorrhage of anus and rectum (principal)
CPT/HCPCS: 80053; 81003; 81015; 85025; 85610; 87086; 99282; 99283

== ENCOUNTER → 2022-06-22 08:50 | Outpatient (CLI) | payer BC, SELFPAY ==
[2022-06-22 10:26] LABS: Add Manual Diff / Slide Review NO; Basophils Absolute Auto 0 /uL (0-100); Basophils Percent Auto 0.3 % (0-2); Eosinophils Absolute Auto 100 /uL (0-450); Eosinophils Percent Auto 1.2 % (2-4); Hematocrit 46.8 % (41-53); Hemoglobin 16.1 g/dL (13.5-17.5); Lymphocytes Absolute Auto 700 /uL (1100-4500); Mean Corpuscular HGB Conc 34.3 % (30-36); Mean Corpuscular Hemoglobin 28.7 PG (26-34); Mean Corpuscular Volume 83.6 fL (80-100); Monocytes Absolute Auto 500 /uL (0-900); Monocytes Percent Auto 7.6 % (3-14); Neutrophils Absolute Auto 5500 /uL (1500-7000); Neutrophils Percent Auto 80.9 % (50-75); Platelet Count 203 X10^3/uL (150-400); Red Cell Distribution Width 13.3 % (11.6-14.8); White Blood Cell Count 6.8 X10^3/uL (4.5-11.0)
[2022-06-22 10:43] LABS: Appearance Urine UA CLEAR; Bilirubin Urine UA NEGATIVE (NEGATIVE); Color Urine UA YELLOW; Glucose Urine UA NEGATIVE (Negative); Ketones Urine UA NEGATIVE (NEGATIVE); Leukocyte Esterase Urine UA NEGATIVE (NEGATIVE); Nitrite Urine UA NEGATIVE (Negative); Occult Blood Urine UA 2+ (Negative); Protein Urine UA TRACE (Negative); Urobilinogen Urine UA 0.2 E.U./dL (0.2)
[2022-06-22 10:48] LABS: Alanine Aminotransferase 78 IU/L (<50); Albumin 4.7 g/dL (3.5-5.0); Albumin Globulin Ratio 1.7 (1.0-2.8); Alkaline Phosphatase 105 U/L (38-126); Aspartate Aminotransferase 72 IU/L (17-59); BUN Creatinine Ratio 15.7 (6-22); Bilirubin Total 0.7 mg/dL (0.2-1.3); Blood Urea Nitrogen 16 mg/dL (9-20); Calcium 9.3 mg/dL (8.4-10.2); Carbon Dioxide 30 mmol/L (22-32); Chloride 98 mmol/L (98-107); Estimated Glomerular Filt Rate > 60 mL/min (>60); Globulin 2.7 g/dL (1.7-4.1); Glucose 97 mg/dL (70-100); HEMOLYSIS < 15 (0-50); Magnesium 1.5 mg/dL (1.6-2.3); Potassium 4.3 mmol/L (3.4-5.1); Sodium 136 mmol/L (137-145); Total Protein 7.4 g/dL (6.3-8.2)
[2022-06-22 10:49] LABS: Bacteria Urine None Seen; RBC Urine 5-10/HPF (0-5/HPF); WBC Urine None Seen (0-5/HPF)
[2022-06-22 11:24] LABS: Creatinine Urine Random 82.9 mg/dL; Protein (Total) Urine Random 40 mg/dL (0-12); Protein Creatinine Ratio Urine 0.48 GRAM/24H
[2022-06-23 16:04] LABS: Tacrolimus 4.9 ng/mL (2.0-20.0)
[2022-06-24 05:12] LABS: Parathyroid Hormone Int 58 pg/mL (15-65)
== END ==
PROVIDERS: Referring Provider Student in an Organized Health Care Education/Training Program; Visit Provider Student in an Organized Health Care Education/Training Program
DX: D70.9 Neutropenia, unspecified (principal); D63.1 Anemia in chronic kidney disease; N06 Isolated proteinuria with specified morphological lesion; D64.9 Anemia, unspecified; E83.40 Disorders of magnesium metabolism, unspecified; N25.81 Secondary hyperparathyroidism of renal origin; N30.00 Acute cystitis without hematuria; R80.9 Proteinuria, unspecified
CPT/HCPCS: 36415; 80053; 80197; 81001; 82570; 83735; 83970; 84156; 85025

== ENCOUNTER → 2022-11-11 07:52 | Outpatient (CLI) | payer BC, SELFPAY ==
[2022-11-11 08:45] LABS: Hematocrit 44.7 % (41-53); Hemoglobin 15.7 g/dL (13.5-17.5); Mean Corpuscular HGB Conc 35.1 % (30-36); Mean Corpuscular Volume 82.4 fL (80-100); Platelet Count 209 X10^3/uL (150-400); Red Blood Cell Count 5.43 X10^6/uL (4.5-5.9); Red Cell Distribution Width 13.1 % (11.6-14.8); White Blood Cell Count 7.5 X10^3/uL (4.5-11.0)
[2022-11-11 08:53] LABS: Appearance Urine UA CLEAR; Bilirubin Urine UA NEGATIVE (NEGATIVE); Color Urine UA YELLOW; Glucose Urine UA NEGATIVE (Negative); Ketones Urine UA NEGATIVE (NEGATIVE); Leukocyte Esterase Urine UA NEGATIVE (NEGATIVE); Nitrite Urine UA NEGATIVE (Negative); Occult Blood Urine UA 1+ (Negative); Protein Urine UA 1+ (Negative); Specific Gravity Urine UA 1.025 (1.000-1.035); Urobilinogen Urine UA 0.2 E.U./dL (0.2)
[2022-11-11 08:55] LABS: RBC Urine 1-5/HPF (0-5/HPF); WBC Urine None Seen (0-5/HPF)
[2022-11-11 08:56] LABS: Bacteria Urine None Seen; Culture Indicated Urine Cult Not Indicated
[2022-11-11 08:58] LABS: Alanine Aminotransferase 60 IU/L (<50); Albumin 4.7 g/dL (3.5-5.0); Alkaline Phosphatase 102 U/L (38-126); Aspartate Aminotransferase 35 IU/L (17-59); BUN Creatinine Ratio 15.9 (6-22); Bilirubin Total 0.8 mg/dL (0.2-1.3); Blood Urea Nitrogen 17 mg/dL (9-20); Calcium 9.3 mg/dL (8.4-10.2); Carbon Dioxide 26 mmol/L (22-32); Chloride 101 mmol/L (98-107); Estimated Glomerular Filt Rate > 60 mL/min (>60); Globulin 2.4 g/dL (1.7-4.1); Glucose 114 mg/dL (70-100); HEMOLYSIS < 15 (0-50); Magnesium 1.6 mg/dL (1.6-2.3); Potassium 4.2 mmol/L (3.4-5.1); Sodium 136 mmol/L (137-145); Total Protein 7.1 g/dL (6.3-8.2)
[2022-11-11 09:15] LABS: Creatinine Urine Random 140.7 mg/dL; Protein (Total) Urine Random 42 mg/dL (0-12); Protein Creatinine Ratio Urine 0.29 GRAM/24H
[2022-11-13 08:09] LABS: Parathyroid Hormone Int 83 pg/mL (15-65)
[2022-11-13 14:16] LABS: Tacrolimus 7.3
== END ==
PROVIDERS: Referring Provider Student in an Organized Health Care Education/Training Program; Visit Provider Student in an Organized Health Care Education/Training Program
DX: D70.9 Neutropenia, unspecified (principal); D63.1 Anemia in chronic kidney disease; N05.9 Unspecified nephritic syndrome with unspecified morphologic changes; T86.10 Unspecified complication of kidney transplant; N30.00 Acute cystitis without hematuria; R80.9 Proteinuria, unspecified; E83.40 Disorders of magnesium metabolism, unspecified; N25.81 Secondary hyperparathyroidism of renal origin
CPT/HCPCS: 36415; 80053; 80197; 81001; 82570; 83735; 83970; 84156; 85027

== ENCOUNTER → 2022-12-14 08:36 | Outpatient (CLI) | payer BC, SELFPAY ==
[2022-12-17 11:02] LABS: Tacrolimus 6.2
== END ==
PROVIDERS: PCP Student in an Organized Health Care Education/Training Program; Referring Provider Student in an Organized Health Care Education/Training Program; Visit Provider Student in an Organized Health Care Education/Training Program
DX: T86.10 Unspecified complication of kidney transplant (principal)
CPT/HCPCS: 36415; 80197

== ENCOUNTER → 2023-05-10 08:56 | Outpatient (CLI) | payer BC, SELFPAY ==
[2023-05-10 10:08] LABS: Add Manual Diff / Slide Review NO; Basophils Absolute Auto 0 /uL (0-100); Basophils Percent Auto 0.3 % (0-2); Eosinophils Absolute Auto 200 /uL (0-450); Eosinophils Percent Auto 2.7 % (2-4); Hematocrit 45.4 % (41-53); Hemoglobin 15.6 g/dL (13.5-17.5); Lymphocytes Absolute Auto 800 /uL (1100-4500); Lymphocytes Percent Auto 10.7 % (25-40); Mean Corpuscular HGB Conc 34.4 % (30-36); Mean Corpuscular Hemoglobin 28.9 PG (26-34); Mean Corpuscular Volume 84.2 fL (80-100); Monocytes Absolute Auto 600 /uL (0-900); Neutrophils Absolute Auto 5600 /uL (1500-7000); Neutrophils Percent Auto 78.3 % (50-75); Platelet Count 210 X10^3/uL (150-400); Red Blood Cell Count 5.39 X10^6/uL (4.5-5.9); Red Cell Distribution Width 13.1 % (11.6-14.8); White Blood Cell Count 7.1 X10^3/uL (4.5-11.0)
[2023-05-10 10:10] LABS: Appearance Urine UA CLEAR; Bilirubin Urine UA NEGATIVE (NEGATIVE); Color Urine UA YELLOW; Glucose Urine UA NEGATIVE (Negative); Ketones Urine UA NEGATIVE (NEGATIVE); Leukocyte Esterase Urine UA NEGATIVE (NEGATIVE); Nitrite Urine UA NEGATIVE (Negative); Occult Blood Urine UA TRACE-INTACT (Negative); Protein Urine UA TRACE (Negative); Specific Gravity Urine UA 1.025 (1.000-1.035); Urobilinogen Urine UA 0.2 E.U./dL (0.2)
[2023-05-10 10:20] LABS: Bacteria Urine None Seen; Culture Indicated Urine Cult Not Indicated; RBC Urine None Seen (0-5/HPF); Squamous Epithelial Cell Urine None Seen (0-5/HPF); WBC Urine None Seen (0-5/HPF)
[2023-05-10 10:29] LABS: Creatinine Urine Random 176.3 mg/dL; Protein (Total) Urine Random 28 mg/dL (0-12); Protein Creatinine Ratio Urine 0.15 GRAM/24H
[2023-05-10 10:31] LABS: Alanine Aminotransferase 56 IU/L (<50); Albumin 4.5 g/dL (3.5-5.0); Albumin Globulin Ratio 1.7 (1.0-2.8); Alkaline Phosphatase 85 U/L (38-126); Aspartate Aminotransferase 38 IU/L (17-59); Bilirubin Total 0.8 mg/dL (0.2-1.3); Blood Urea Nitrogen 17 mg/dL (9-20); Calcium 9.7 mg/dL (8.4-10.2); Carbon Dioxide 27 mmol/L (22-32); Chloride 99 mmol/L (98-107); Estimated Glomerular Filt Rate > 60 mL/min (>60); Globulin 2.6 g/dL (1.7-4.1); Glucose 111 mg/dL (70-100); HEMOLYSIS < 15 (0-50); Magnesium 1.6 mg/dL (1.6-2.3); Potassium 4.6 mmol/L (3.4-5.1); Sodium 137 mmol/L (137-145); Total Protein 7.1 g/dL (6.3-8.2)
[2023-05-12 08:54] LABS: Parathyroid Hormone Int 78 pg/mL (15-65)
[2023-05-17 09:34] LABS: Tacrolimus 3.8
== END ==
PROVIDERS: PCP Student in an Organized Health Care Education/Training Program; Referring Provider Student in an Organized Health Care Education/Training Program; Visit Provider Student in an Organized Health Care Education/Training Program
DX: D70.9 Neutropenia, unspecified (principal); D63.1 Anemia in chronic kidney disease; N05.9 Unspecified nephritic syndrome with unspecified morphologic changes; T86.10 Unspecified complication of kidney transplant; E83.40 Disorders of magnesium metabolism, unspecified; N25.81 Secondary hyperparathyroidism of renal origin; N30.00 Acute cystitis without hematuria; R80.9 Proteinuria, unspecified
CPT/HCPCS: 36415; 80053; 80197; 81001; 82570; 83735; 83970; 84156; 85025

== ENCOUNTER → 2023-05-24 09:41 | Outpatient (CLI) | payer BC, SELFPAY ==
[2023-05-31 11:08] LABS: BK Virus, DNA, QN, PCR NEGATIVE
[2023-05-31 11:20] LABS: Tacrolimus 3.7
== END ==
PROVIDERS: PCP Student in an Organized Health Care Education/Training Program; Referring Provider Student in an Organized Health Care Education/Training Program; Visit Provider Student in an Organized Health Care Education/Training Program
DX: T86.10 Unspecified complication of kidney transplant (principal); B34.9 Viral infection, unspecified
CPT/HCPCS: 36415; 80197; 87799

== ENCOUNTER → 2023-06-21 08:41 | Outpatient (CLI) | payer BC, SELFPAY | LOC: LAB 08:43 | PROVIDERS: PCP Student in an Organized Health Care Education/Training Program; Referring Provider Student in an Organized Health Care Education/Training Program; Visit Provider Student in an Organized Health Care Education/Training Program | DX: T86.10 Unspecified complication of kidney transplant (principal) | CPT/HCPCS: 36415; 80197 ==

== ENCOUNTER → 2023-08-13 09:27 | Outpatient (CLI) | payer OTHER, SELFPAY ==
[2023-08-13 10:35] LABS: BUN Creatinine Ratio 14.9 (6-22); Blood Urea Nitrogen 17 mg/dL (9-20); Calcium 9.6 mg/dL (8.4-10.2); Carbon Dioxide 29 mmol/L (22-32); Chloride 104 mmol/L (98-107); Estimated Glomerular Filt Rate > 60 mL/min (>60); Glucose 137 mg/dL (70-100); HEMOLYSIS < 15 (0-50); Potassium 4.3 mmol/L (3.4-5.1); Sodium 138 mmol/L (137-145)
== END ==
PROVIDERS: PCP Student in an Organized Health Care Education/Training Program; Referring Provider Student in an Organized Health Care Education/Training Program; Visit Provider Student in an Organized Health Care Education/Training Program
DX: N05.9 Unspecified nephritic syndrome with unspecified morphologic changes (principal)
CPT/HCPCS: 36415; 80048

== ENCOUNTER → 2023-10-15 09:00 | Outpatient (CLI) | payer OTHER, SELFPAY ==
[2023-10-15 11:04] LABS: Hematocrit 46.1 % (41-53); Hemoglobin 16.1 g/dL (13.5-17.5); Mean Corpuscular HGB Conc 34.9 % (30-36); Mean Corpuscular Hemoglobin 29.3 PG (26-34); Mean Corpuscular Volume 83.9 fL (80-100); Platelet Count 211 X10^3/uL (150-400); Red Blood Cell Count 5.49 X10^6/uL (4.5-5.9); White Blood Cell Count 7.1 X10^3/uL (4.5-11.0)
[2023-10-15 11:16] LABS: Alanine Aminotransferase 64 IU/L (<50); Albumin Globulin Ratio 1.9 (1.0-2.8); Alkaline Phosphatase 81 U/L (38-126); Aspartate Aminotransferase 37 IU/L (17-59); BUN Creatinine Ratio 14.6 (6-22); Bilirubin Total 0.8 mg/dL (0.2-1.3); Blood Urea Nitrogen 15 mg/dL (9-20); Calcium 9.7 mg/dL (8.4-10.2); Carbon Dioxide 27 mmol/L (22-32); Chloride 102 mmol/L (98-107); Estimated Glomerular Filt Rate > 60 mL/min (>60); Globulin 2.7 g/dL (1.7-4.1); Glucose 109 mg/dL (70-100); HEMOLYSIS < 15 (0-50); Magnesium 1.6 mg/dL (1.6-2.3); Potassium 4.6 mmol/L (3.4-5.1); Sodium 137 mmol/L (137-145); Total Protein 7.7 g/dL (6.3-8.2)
[2023-10-15 13:03] LABS: Appearance Urine UA CLEAR; Bilirubin Urine UA NEGATIVE (NEGATIVE); Color Urine UA YELLOW; Glucose Urine UA NEGATIVE (Negative); Ketones Urine UA NEGATIVE (NEGATIVE); Leukocyte Esterase Urine UA NEGATIVE (NEGATIVE); Nitrite Urine UA NEGATIVE (Negative); Occult Blood Urine UA NEGATIVE (Negative); Protein Urine UA NEGATIVE (Negative); Urobilinogen Urine UA 0.2 E.U./dL (0.2)
[2023-10-15 13:08] LABS: Protein (Total) Urine Random 18 mg/dL (0-12); Protein Creatinine Ratio Urine 0.24 GRAM/24H
[2023-10-15 13:17] LABS: Bacteria Urine None Seen; Culture Indicated Urine Cult Not Indicated; RBC Urine None Seen (0-5/HPF); Squamous Epithelial Cell Urine None Seen (0-5/HPF); Urine Volume 10mL (spun); WBC Urine None Seen (0-5/HPF)
[2023-10-17 09:17] LABS: Tacrolimus 5.1 ng/mL (2.0-20.0)
== END ==
PROVIDERS: PCP Student in an Organized Health Care Education/Training Program; Referring Provider Student in an Organized Health Care Education/Training Program; Visit Provider Student in an Organized Health Care Education/Training Program
DX: D70.9 Neutropenia, unspecified (principal); D63.1 Anemia in chronic kidney disease; N05.9 Unspecified nephritic syndrome with unspecified morphologic changes; T86.10 Unspecified complication of kidney transplant; E83.10 Disorder of iron metabolism, unspecified; N25.81 Secondary hyperparathyroidism of renal origin; N30.00 Acute cystitis without hematuria; R80.9 Proteinuria, unspecified
CPT/HCPCS: 36415; 80053; 80197; 81001; 82570; 83735; 83970; 84156; 85027

== ENCOUNTER → 2024-03-27 10:03 | Outpatient (CLI) | payer BC, SELFPAY ==
[2024-03-27 12:49] LABS: Hematocrit 47.5 % (41-53); Hemoglobin 16.6 g/dL (13.5-17.5); Mean Corpuscular HGB Conc 34.9 % (30-36); Mean Corpuscular Hemoglobin 29.9 PG (26-34); Mean Corpuscular Volume 85.8 fL (80-100); Platelet Count 227 X10^3/uL (150-400); Red Blood Cell Count 5.54 X10^6/uL (4.5-5.9); Red Cell Distribution Width 13.1 % (11.6-14.8); White Blood Cell Count 8.6 X10^3/uL (4.5-11.0)
[2024-03-27 13:04] LABS: Appearance Urine UA CLEAR; Bilirubin Urine UA NEGATIVE (NEGATIVE); Color Urine UA YELLOW; Glucose Urine UA NEGATIVE (Negative); Ketones Urine UA NEGATIVE (NEGATIVE); Leukocyte Esterase Urine UA NEGATIVE (NEGATIVE); Nitrite Urine UA NEGATIVE (Negative); Occult Blood Urine UA NEGATIVE (Negative); Protein Urine UA NEGATIVE (Negative); Specific Gravity Urine UA 1.015 (1.000-1.035); Urobilinogen Urine UA 0.2 E.U./dL (0.2)
[2024-03-27 13:16] LABS: Alanine Aminotransferase 53 IU/L (<50); Albumin 5.2 g/dL (3.5-5.0); Albumin Globulin Ratio 1.9 (1.0-2.8); Alkaline Phosphatase 75 U/L (38-126); Aspartate Aminotransferase 33 IU/L (17-59); BUN Creatinine Ratio 15.3 (6-22); Bilirubin Total 0.9 mg/dL (0.2-1.3); Blood Urea Nitrogen 18 mg/dL (9-20); Calcium 10.2 mg/dL (8.4-10.2); Carbon Dioxide 26 mmol/L (22-32); Chloride 99 mmol/L (98-107); Estimated Glomerular Filt Rate > 60 mL/min (>60); Globulin 2.7 g/dL (1.7-4.1); Glucose 98 mg/dL (70-100); HEMOLYSIS < 15 (0-50); Magnesium 1.7 mg/dL (1.6-2.3); Sodium 137 mmol/L (137-145); Total Protein 7.9 g/dL (6.3-8.2)
[2024-03-27 13:20] LABS: Bacteria Urine None Seen; Culture Indicated Urine Cult Not Indicated; RBC Urine None Seen (0-5/HPF); Squamous Epithelial Cell Urine None Seen (0-5/HPF); Urine Volume 10mL (spun); WBC Urine None Seen (0-5/HPF)
[2024-03-27 14:57] LABS: Creatinine Urine Random 161.08 mg/dL; Protein (Total) Urine Random 13 mg/dL (0-12); Protein Creatinine Ratio Urine 0.08 GRAM/24H
[2024-03-28 06:36] LABS: Tacrolimus 4.9 ng/mL (2.0-20.0)
[2024-03-28 07:10] LABS: Parathyroid Hormone Int 58 pg/mL (15-65)
[2024-03-29 18:07] LABS: BK Virus, DNA, QN, PCR Negative (Negative)
== END ==
PROVIDERS: PCP Student in an Organized Health Care Education/Training Program; Referring Provider Student in an Organized Health Care Education/Training Program; Visit Provider Student in an Organized Health Care Education/Training Program
DX: D70.9 Neutropenia, unspecified (principal); D63.1 Anemia in chronic kidney disease; N05.9 Unspecified nephritic syndrome with unspecified morphologic changes; T86.10 Unspecified complication of kidney transplant; E83.40 Disorders of magnesium metabolism, unspecified; N25.81 Secondary hyperparathyroidism of renal origin; B34.9 Viral infection, unspecified; N30.00 Acute cystitis without hematuria; R80.9 Proteinuria, unspecified
CPT/HCPCS: 36415; 80053; 80197; 81001; 82570; 83735; 83970; 84156; 85027; 87799

== ENCOUNTER → 2024-08-14 08:58 | Outpatient (CLI) | payer BC, SELFPAY ==
[2024-08-14 09:34] LABS: Hemoglobin 15.4 g/dL (13.5-17.5); Mean Corpuscular HGB Conc 34.2 % (30-36); Mean Corpuscular Hemoglobin 29.3 PG (26-34); Mean Corpuscular Volume 85.5 fL (80-100); Platelet Count 225 X10^3/uL (150-400); Red Blood Cell Count 5.27 X10^6/uL (4.5-5.9); Red Cell Distribution Width 13.4 % (11.6-14.8); White Blood Cell Count 7.1 X10^3/uL (4.5-11.0)
[2024-08-14 09:55] LABS: Alanine Aminotransferase 45 IU/L (<50); Albumin 4.8 g/dL (3.5-5.0); Albumin Globulin Ratio 2.1 (1.0-2.8); Alkaline Phosphatase 63 U/L (38-126); Aspartate Aminotransferase 32 IU/L (17-59); BUN Creatinine Ratio 13.4 (6-22); Bilirubin Total 0.8 mg/dL (0.2-1.3); Blood Urea Nitrogen 16 mg/dL (9-20); Calcium 9.2 mg/dL (8.4-10.2); Carbon Dioxide 27 mmol/L (22-32); Chloride 99 mmol/L (98-107); Estimated Glomerular Filt Rate > 60 mL/min (>60); Globulin 2.3 g/dL (1.7-4.1); Glucose 118 mg/dL (70-100); HEMOLYSIS < 15 (0-50); Magnesium 1.5 mg/dL (1.6-2.3); Potassium 4.9 mmol/L (3.4-5.1); Sodium 135 mmol/L (137-145); Total Protein 7.1 g/dL (6.3-8.2)
[2024-08-14 10:13] LABS: Appearance Urine UA CLEAR; Bilirubin Urine UA NEGATIVE (NEGATIVE); Color Urine UA YELLOW; Glucose Urine UA NEGATIVE (Negative); Ketones Urine UA NEGATIVE (NEGATIVE); Leukocyte Esterase Urine UA NEGATIVE (NEGATIVE); Nitrite Urine UA NEGATIVE (Negative); Occult Blood Urine UA NEGATIVE (Negative); Protein Urine UA NEGATIVE (Negative); Specific Gravity Urine UA 1.025 (1.000-1.035); Urobilinogen Urine UA 0.2 E.U./dL (0.2); pH Urine UA 5.5 (4.5-8.0)
[2024-08-14 10:18] LABS: Bacteria Urine None Seen; Culture Indicated Urine Cult Not Indicated; RBC Urine None Seen (0-5/HPF); Squamous Epithelial Cell Urine 1-5 /HPF (0-5/HPF); Urine Volume 10mL (spun); WBC Urine None Seen (0-5/HPF)
[2024-08-14 10:31] LABS: Creatinine Urine Random 194.77 mg/dL; Protein (Total) Urine Random 5 mg/dL (0-12); Protein Creatinine Ratio Urine 0.02 GRAM/24H
[2024-08-15 03:08] LABS: Tacrolimus 4.7 ng/mL (5.0-20.0)
[2024-08-15 19:07] LABS: Calcium 9.8 mg/dL (8.7-10.2); Parathyroid Hormone, Intact 65 pg/mL (15-65)
[2024-08-17 06:09] LABS: BK Virus, DNA, QN, PCR Negative (Negative)
== END ==
PROVIDERS: PCP Student in an Organized Health Care Education/Training Program; Referring Provider Student in an Organized Health Care Education/Training Program; Visit Provider Student in an Organized Health Care Education/Training Program
DX: D70.9 Neutropenia, unspecified (principal); D63.1 Anemia in chronic kidney disease; N05.9 Unspecified nephritic syndrome with unspecified morphologic changes; T86.10 Unspecified complication of kidney transplant; E83.40 Disorders of magnesium metabolism, unspecified; N25.81 Secondary hyperparathyroidism of renal origin; B34.9 Viral infection, unspecified; R80.9 Proteinuria, unspecified; N30.00 Acute cystitis without hematuria
CPT/HCPCS: 36415; 80053; 80197; 81001; 82310; 82570; 83735; 83970; 84156; 85027; 87799

== ENCOUNTER → 2025-03-19 08:45 | Outpatient (CLI) | payer BC, SELFPAY ==
[2025-03-19 09:16] LABS: Hematocrit 42.7 % (41-53); Hemoglobin 14.8 g/dL (13.5-17.5); Mean Corpuscular HGB Conc 34.6 % (30-36); Mean Corpuscular Hemoglobin 29.2 PG (26-34); Mean Corpuscular Volume 84.2 fL (80-100); Platelet Count 205 X10^3/uL (150-400)
[2025-03-19 09:36] LABS: Alanine Aminotransferase 38 IU/L (<50); Albumin 4.7 g/dL (3.5-5.0); Albumin Globulin Ratio 1.8 (1.0-2.8); Alkaline Phosphatase 67 U/L (38-126); Blood Urea Nitrogen 17 mg/dL (9-20); Calcium 9.4 mg/dL (8.4-10.2); Carbon Dioxide 26 mmol/L (22-32); Chloride 100 mmol/L (98-107); Estimated Glomerular Filt Rate > 60 mL/min (>60); Globulin 2.6 g/dL (1.7-4.1); Glucose 116 mg/dL (70-99); HEMOLYSIS < 15 (0-50); Magnesium 1.5 mg/dL (1.6-2.3); Potassium 4.6 mmol/L (3.4-5.1); Sodium 135 mmol/L (137-145); Total Protein 7.3 g/dL (6.3-8.2)
[2025-03-19 09:59] LABS: Appearance Urine UA CLEAR; Bilirubin Urine UA NEGATIVE (NEGATIVE); Color Urine UA YELLOW; Glucose Urine UA NEGATIVE (Negative); Ketones Urine UA NEGATIVE (NEGATIVE); Leukocyte Esterase Urine UA NEGATIVE (NEGATIVE); Nitrite Urine UA NEGATIVE (Negative); Occult Blood Urine UA NEGATIVE (Negative); Protein Urine UA TRACE (Negative); Specific Gravity Urine UA 1.020 (1.000-1.035); Urobilinogen Urine UA 0.2 E.U./dL (0.2); pH Urine UA 5.5 (4.5-8.0)
[2025-03-19 10:01] LABS: Culture Indicated Urine Cult Not Indicated
[2025-03-19 10:04] LABS: Protein (Total) Urine Random 23 mg/dL (0-12); Protein Creatinine Ratio Urine 0.14 GRAM/24H
== END ==
PROVIDERS: PCP Student in an Organized Health Care Education/Training Program; Referring Provider Student in an Organized Health Care Education/Training Program; Visit Provider Student in an Organized Health Care Education/Training Program
DX: D70.9 Neutropenia, unspecified (principal); E83.40 Disorders of magnesium metabolism, unspecified; N30.00 Acute cystitis without hematuria; N05.9 Unspecified nephritic syndrome with unspecified morphologic changes; R80.9 Proteinuria, unspecified; D63.1 Anemia in chronic kidney disease; T86.10 Unspecified complication of kidney transplant
CPT/HCPCS: 36415; 80053; 80197; 81001; 82570; 83735; 84156; 85027